=== PATIENT | female | born 1945 | race Caucasian/White ===

== ENCOUNTER 2021-04-05 16:04 | Emergency (ER) | payer MEDICARE, BC ==
--- NOTE | 2021-04-05 16:21 | EDM.PDOC ---
ED HPI GENERAL MEDICAL PROBLEM - General Chief Complaint: Chest Pain Stated Complaint: CHEST PAIN Time Seen by Provider: 04/05/21 16:21 Source of Information: Reports: Patient, RN Notes Reviewed History Limitations: Reports: No Limitations - History of Present Illness INITIAL COMMENTS - FREE TEXT/NARRATIVE: Jessa presents today with complaints of chest pressure off and on since last night after eating at the chicken coop. She states she had pressure to the mid chest that felt like she needed to belch after eating and until she went to sleep. She states she slept well and woke this am without the sensation. She states about 3 hours after she had been awake the chest pressure started. She denies radiation of the sensation, nausea, vomiting, increased belching, abdominal pain or bloating, or change in bowel/bladder. She has taken coumadin since 2019, has pending appointment for an echocardiogram per her product safety test engineer for a large murmur. She reports she has a history of a-fib and thinks she goes in and out of it then back to normal. She denies any dizziness, syncope or other concerns. She has a pending appointment for echocardiogram 04/23/2021. - Related Data Allergies Allergy/AdvReac Type Severity Reaction Status Date / Time No Known Allergies Allergy Verified 04/05/21 16:13 Home Meds: Home Meds Albuterol Sulfate [Proair Hfa] 2 puff INH Q4H PRN 11/22/19 [History] Furosemide [Lasix] 20 mg PO DAILY 11/22/19 [History] Losartan Potassium 25 mg PO DAILY 11/22/19 [History] Metoprolol Succinate [Toprol XL] 25 mg PO DAILY 11/22/19 [History] Multivitamin with Minerals [Multiple Vitamin] 1 tab PO DAILY 11/22/19 [History] Warfarin [Coumadin] 5 mg PO ASDIRECTED 11/22/19 [History] Warfarin [Coumadin] 7.5 mg PO ASDIRECTED 04/05/21 [History] Past Medical History Cardiovascular History: Reports: Heart Murmur Musculoskeletal History: Reports: Fracture Social & Family History - Tobacco Use Tobacco Use Status *Q: Never Tobacco User ED ROS GENERAL - Review of Systems Review Of Systems: See Below Constitutional: Reports: No Symptoms Respiratory: Reports: No Symptoms. Denies: Wheezing, Pleuritic Chest Pain, Cough, Sputum, Hemoptysis Cardiovascular: Reports: Chest Pain (chest pressure to mid-sternum intermittent since last night. ), Dyspnea on Exertion, Edema (that started to bilateral lower legs yesterday with some redness), Palpitations. Denies: Blood Pressure Problem, Claudication, Lightheadedness, Orthopnea, PND, Syncope Endocrine: Reports: No Symptoms GI/Abdominal: Reports: No Symptoms : Reports: No Symptoms Musculoskeletal: Reports: No Symptoms Skin: Reports: No Symptoms Neurological: Reports: No Symptoms Psychiatric: Reports: No Symptoms Hematologic/Lymphatic: Reports: No Symptoms Immunologic: Reports: No Symptoms ED EXAM, GENERAL - Physical Exam Exam: See Below Exam Limited By: No Limitations General Appearance: Alert, WD/WN, No Apparent Distress Eye Exam: Bilateral Eye: Normal Inspection, PERRL Ears: Normal External Exam, Normal Canal, Hearing Grossly Normal, Normal TMs Ear Exam: Bilateral Ear: Auricle Normal, Canal Normal, TM normal Throat/Mouth: Normal Inspection, Normal Lips, Normal Gums, Normal Oropharynx, Normal Voice, No Airway Compromise Head: Atraumatic, Normocephalic Neck: Normal Inspection, Supple, Non-Tender, Full Range of Motion. No: Lymphadenopathy (R), Lymphadenopathy (L) Respiratory/Chest: No Respiratory Distress, Lungs Clear, Normal Breath Sounds, No Accessory Muscle Use, Chest Non-Tender. No: Crackles, Rales, Rhonchi, Wheezing, Stridor, Accessory Muscle Use, Retractions, Splinting Cardiovascular: No Gallop, No JVD, No Rub, Other (noted murmur, grade 3). No: Regular Rate, Rhythm (atrial fibriilation, rate controlled) Peripheral Pulses: 3+: Dorsalis Pedis (L), Dorsalis Pedis (R), 4+: Radial (L), Radial (R) GI/Abdominal: Normal Bowel Sounds, Soft, Non-Tender, No Organomegaly, No Distention, No Mass. No: Guarding, Rigid, Rebound, Tender Back Exam: Normal Inspection, Full Range of Motion. No: CVA Tenderness (R), CVA Tenderness (L) Extremities: Normal Range of Motion, Non-Tender, Normal Capillary Refill, Pedal Edema (2+ from feet to mid-calf) Neurological: Alert, Oriented, CN II-XII Intact, Normal Cognition, Normal Gait, No Motor/Sensory Deficits Psychiatric: Normal Affect, Normal Mood Skin Exam: Warm, Dry, Intact, Normal Color, No Rash Lymphatic: No Adenopathy #1 Interpretation EKG Date: 04/05/21 Time: 16:07 Rhythm: A-Fib Rate (Beats/Min): 93 Comparison: NA - No Prior EKG EKG Interpretation Comments: QRSD 105 QT 350 QTc 436 Course - Vital Signs Last Recorded V/S: Last Vital Signs Temp 36.7 C 04/05/21 16:12 Pulse 71 04/05/21 17:57 Resp 20 04/05/21 16:12 BP 174/100 H 04/05/21 17:57 Pulse Ox 96 04/05/21 16:12 - Orders/Labs/Meds Orders: Active Orders 24 hr Category Date Time Status Chest 2V [CR] Stat Exams 04/05/21 16:41 Taken EKG 12 Lead [EK] Routine Ther 04/05/21 16:40 Ordered Labs: Laboratory Tests 04/05/21 04/05/21 04/05/21 Range/Units 16:54 16:54 16:54 WBC 9.1 (4.5-11.0) K/uL RBC 4.89 (3.30-5.50) M/uL Hgb 12.6 (12.0-15.0) g/dL Hct 39.3 (36.0-48.0) % MCV 80 (80-98) fL MCH 26 L (27-31) pg MCHC 32 (32-36) % Plt Count 342 (150-400) K/uL Neut % (Auto) 77.7 H (36-66) % Lymph % (Auto) 17.7 L (24-44) % [place] % (Auto) 4.5 (2-6) % Eos % (Auto) 0.0 L (2-4) % Baso % (Auto) 0.1 (0-1) % PT 21.4 H (9.5-12.0) sec INR 1.99 H (0.80-1.20) APTT 36.8 H (27.0-36.0) sec Sodium 138 L (140-148) mmol/L Potassium 4.9 (3.6-5.2) mmol/L Chloride 99 L (100-108) mmol/L Carbon Dioxide 27 (21-32) mmol/L Anion Gap 16.9 H (5.0-14.0) mmol/L BUN 17 (7-18) mg/dL Creatinine 0.9 (0.6-1.0) mg/dL Est Cr Clr Drug Dosing 49.00 mL/min Estimated GFR (MDRD) > 60 (>60) Glucose 103 (74-106) mg/dL Calcium 9.2 (8.5-10.1) mg/dL Magnesium (1.8-2.4) mg/dL Total Bilirubin 0.5 (0.2-1.0) mg/dL AST 26 (15-37) U/L ALT 35 (12-78) U/L Alkaline Phosphatase 148 H (46-116) U/L Troponin I < 0.017 (0.000-0.056) ng/mL NT-Pro-B Natriuret Pep 984 H (5-450) pg/mL Total Protein 7.5 (6.4-8.2) g/dL Albumin 3.3 L (3.4-5.0) g/dL Globulin 4.2 H (2.3-3.5) g/dL Albumin/Globulin Ratio 0.8 L (1.2-2.2) TSH, Ultra Sensitive 0.774 (0.358-3.740) uIU/mL 04/05/21 Range/Units 16:54 WBC (4.5-11.0) K/uL RBC (3.30-5.50) M/uL Hgb (12.0-15.0) g/dL Hct (36.0-48.0) % MCV (80-98) fL MCH (27-31) pg MCHC (32-36) % Plt Count (150-400) K/uL Neut % (Auto) (36-66) % Lymph % (Auto) (24-44) % [place] % (Auto) (2-6) % Eos % (Auto) (2-4) % Baso % (Auto) (0-1) % PT (9.5-12.0) sec INR (0.80-1.20) APTT (27.0-36.0) sec Sodium (140-148) mmol/L Potassium (3.6-5.2) mmol/L Chloride (100-108) mmol/L Carbon Dioxide (21-32) mmol/L Anion Gap (5.0-14.0) mmol/L BUN (7-18) mg/dL Creatinine (0.6-1.0) mg/dL Est Cr Clr Drug Dosing mL/min Estimated GFR (MDRD) (>60) Glucose (74-106) mg/dL Calcium (8.5-10.1) mg/dL Magnesium 1.9 (1.8-2.4) mg/dL Total Bilirubin (0.2-1.0) mg/dL AST (15-37) U/L ALT (12-78) U/L Alkaline Phosphatase (46-116) U/L Troponin I (0.000-0.056) ng/mL NT-Pro-B Natriuret Pep (5-450) pg/mL Total Protein (6.4-8.2) g/dL Albumin (3.4-5.0) g/dL Globulin (2.3-3.5) g/dL Albumin/Globulin Ratio (1.2-2.2) TSH, Ultra Sensitive (0.358-3.740) uIU/mL Patient lab work reviewed, she is most likely suffering from CHF at this time. Meds: Medications Discontinued Medications Generic Name Dose Route Start Last Admin Trade Name Freq PRN Reason Stop Dose Admin Al Hydroxide/Mg Hydroxide 15 0 ml 04/05/21 16:39 04/05/21 16:55 ml/ Lidocaine HCl 15 ml PO 04/05/21 16:40 15 ml ONETIME ONE Administration Patient had emesis of GI cocktail shortly after administration. She reports the chest pressure is gone. BP 140s/80s - Radiology Interpretation Free Text/Narrative:: chest x-ray wet read, reviewed, noted mild cardiomegaly with some pulmonary edema. - Re-Assessments/Exams Free Text/Narrative Re-Assessment/Exam: 04/05/21 17:30 Patient lab and x-ray reviewed with Dr. Officer and patient. They are in agreement with plan. She will be discharged to home, increase furosemide to 40mg PO daily for 7 days then then resume furosemide 20mg PO daily as directed and follow up with Dr. Briscoe and cardiology. Return for any worsening, issues or concerns. Referrals placed for Dr. Briscoe and cardiology. Departure - Departure Time of Disposition: 17:47 Disposition: Home, Self-Care 01 Condition: Good Clinical Impression: CHF (congestive heart failure) Instructions: Heart Failure, Self Care, [id number] Referrals: Damien Briscoe MD [Primary Care Provider] - Forms: ED Department Discharge Additional Instructions: You have been evaluated and treated for chest pressure. It is noted that your blood work and chest x-ray point toward congestive heart failure. Increase your furosemide (lasix) to 40mg by mouth daily. Take two of your 20mg pills total when you get home and every morning for 7 days. Then take previous dose of 20mg by mouth daily. Avoid high salt diet. Weigh yourself every day to monitor for weight gain as this could be fluid build-up. If you gain 10lbs or more in 24 hours, call your primary for direction. Elevate your legs to help with edema, you can also wear compression stockings to help with leg edema. Take all your other medications as they are prescribed. Return for any difficulty breathing, ongoing pain, issues or concerns. Follow up with Dr. Briscoe in the next week. Follow up with cardiology and keep echocardiogram test. Sepsis Event Note (ED) - Evaluation Sepsis Screening Result: No Definite Risk - Focused Exam Vital Signs: Vital Signs Temp Pulse Resp BP Pulse Ox 04/05/21 17:57 71 174/100 H 04/05/21 16:12 36.7 C 95 20 172/81 H 96 - My Orders Last 24 Hours: My Active Orders 04/05/21 16:40 EKG 12 Lead [EK] Routine 04/05/21 16:41 Chest 2V [CR] Stat - Assessment/Plan Last 24 Hours: My Active Orders 04/05/21 16:40 EKG 12 Lead [EK] Routine 04/05/21 16:41 Chest 2V [CR] Stat Assessment:: CHF (congestive heart failure) Plan: Patient evaluated and treated for chest pressure. ProBNP >900, trop negative, lower extremity edema, slight cardiomegaly and chest x-ray point toward congestive heart failure. Increase furosemide (lasix) to 40mg by mouth daily. Take two of 20mg pills total when she get home and every morning for 7 days. Then take previous dose of 20mg by mouth daily. Avoid high salt diet. Weigh herself every day to monitor for weight gain as this could be fluid build- up. If she gains 10lbs or more in 24 hours, she needs to call her primary for direction. Elevate legs to help with edema, can also wear compression stockings to help with leg edema. Take all other medications as they are prescribed. Return for any difficulty breathing, ongoing pain, issues or concerns. Follow up with Dr. Briscoe in the next week. Follow up with cardiology and keep echocardiogram test.
[2021-04-05] MEDS ORDERED: Alum Hydrox/Mag Hydrox/Simeth 15 ML, Lidocaine 2% 15 ML PO ONE ×2 (16:39)
--- NOTE | 2021-04-08 09:09 | CR ---
CHEST: 2 view CLINICAL HISTORY:Chest pressure COMPARISON:None FINDINGS: Heart is mildly enlarged. Pulmonary vascularity is normal. There are atherosclerotic changes in the aorta. There is diffuse interstitial prominence which is likely chronic. No infiltrates are seen. There are dense calcifications in the right upper quadrant in the region of the gallbladder. Impression: Mild cardiomegaly Diffuse interstitial prominence likely chronic. No acute cardiopulmonary process Large dense calcifications in the right upper quadrant and the region of the gallbladder. These may represent large gallstones or possibly porcelain gallbladder. CT abdomen with contrast should be considered if there are no prior studies.
== END 2021-04-05 18:03 | disposition home or self-care (01) ==
LOC: JP.ED 16:04
DX: I50.9 Heart failure, unspecified (principal); Z79.01 Long term (current) use of anticoagulants; Z79.899 Other long term (current) drug therapy
CPT/HCPCS: 36415; 71046; 80053; 83735; 83880; 84443; 84484; 85025; 85610; 85730; 93005; 99285; A9270

== ENCOUNTER 2021-05-25 10:06 | Emergency (ER) | payer MEDICARE, BC ==
--- NOTE | 2021-05-25 11:47 | EDM.PDOC ---
ED HPI GENERAL MEDICAL PROBLEM - General Chief Complaint: Gastrointestinal Problem Stated Complaint: PROCEDURE DONE 05/24 NOW HAS BLOODY STOOLS AND CLOT Time Seen by Provider: 05/25/21 11:20 Source of Information: Reports: Patient History Limitations: Reports: No Limitations - History of Present Illness INITIAL COMMENTS - FREE TEXT/NARRATIVE: On coumadin for a. fib. Red rectal bleeding this am. Passing a few small clots and using a pad. No lightheadedness, chest pain or SOB. No nausea or vomiting. No history of GI Bleed. Had Coronary angiogram yesterday with placement of stent. Didn't take Coumadin or Plavix today. - Related Data Allergies Allergy/AdvReac Type Severity Reaction Status Date / Time No Known Allergies Allergy Verified 05/25/21 11:23 Home Meds: Home Meds Furosemide [Lasix] 20 mg PO DAILY 11/22/19 [History] Losartan Potassium 25 mg PO DAILY 11/22/19 [History] Metoprolol Succinate [Toprol XL] 25 mg PO DAILY 11/22/19 [History] Multivitamin with Minerals [Multiple Vitamin] 1 tab PO DAILY 11/22/19 [History] Warfarin [Coumadin] 5 mg PO ASDIRECTED 11/22/19 [History] Warfarin [Coumadin] 7.5 mg PO ASDIRECTED 04/05/21 [History] Past Medical History HEENT History: Reports: Cataract Cardiovascular History: Reports: Afib, CAD, Heart Murmur, Stents Respiratory History: Reports: None Genitourinary History: Reports: None 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: Musculoskeletal History: Reports: Arthritis, Fracture Other Musculoskeletal History: wrist ankle Neurological History: Reports: None Psychiatric History: Reports: None Endocrine/Metabolic History: Reports: Obesity/BMI 30+ Hematologic History: Reports: None Immunologic History: Reports: None Oncologic (Cancer) History: Reports: None Dermatologic History: Reports: None - Infectious Disease History Infectious Disease History: Reports: Chicken Pox - Past Surgical History HEENT Surgical History: Reports: Cataract Surgery Cardiovascular Surgical History: Reports: Cardiac Ablation, Coronary Artery Stent, Percutaneous Transluminal Angioplasty, Other (See Below) Other Cardiovascular Surgeries/Procedures: MILLI - stent 05/24/2021. to have a valve replace Jun 03 GI Surgical History: Reports: Colonoscopy Female Surgical History: Reports: Hysterectomy Social & Family History - Tobacco Use Tobacco Use Status *Q: Former Tobacco User Used Tobacco, but Quit: Yes Month/Year Tobacco Last Used: 25 years ago - Caffeine Use Caffeine Use: Reports: Coffee, Tea ED ROS GENERAL - Review of Systems Review Of Systems: See Below Constitutional: Reports: No Symptoms Respiratory: Reports: No Symptoms Cardiovascular: Reports: No Symptoms Endocrine: Reports: No Symptoms GI/Abdominal: Reports: Hematochezia. Denies: Bloody Stool Musculoskeletal: Reports: No Symptoms Skin: Reports: No Symptoms Neurological: Reports: Dizziness ED EXAM, GI/ABD - Physical Exam Exam: See Below Exam Limited By: No Limitations General Appearance: Alert, WD/WN, No Apparent Distress GI/Abdominal Exam: Other (Rectum and anus appear normal. Some dark blood at anus noted. No obvious source on visual inspection. ) Skin Exam: Warm, Dry, Intact Course - Vital Signs Text/Narrative:: The patient was assessed. Hemodynamically stable. Exam- small amt of red blood at rectum. Lab= normal CBC and INR is 1.1. Pt will hold coumadin and plavix until she talks to her doctor on Thursday. Return to the ED as needed. Last Recorded V/S: Last Vital Signs Temp 36.1 C 05/25/21 11:16 Pulse 66 05/25/21 11:16 Resp 16 05/25/21 11:16 BP 136/56 L 05/25/21 11:16 Pulse Ox 98 05/25/21 11:16 - Orders/Labs/Meds Labs: Laboratory Tests 05/25/21 05/25/21 Range/Units 11:50 11:50 WBC 6.6 (4.5-11.0) K/uL RBC 4.67 (3.30-5.50) M/uL Hgb 12.3 (12.0-15.0) g/dL Hct 38.3 (36.0-48.0) % MCV 82 (80-98) fL MCH 26 L (27-31) pg MCHC 32 (32-36) % Plt Count 304 (150-400) K/uL Neut % (Auto) 72.2 H (36-66) % Lymph % (Auto) 23.3 L (24-44) % [place] % (Auto) 3.8 (2-6) % Eos % (Auto) 0.5 L (2-4) % Baso % (Auto) 0.2 (0-1) % PT 11.0 H (9.2-10.6) sec INR 1.1 Departure - Departure Time of Disposition: 12:55 Disposition: Home, Self-Care 01 Condition: Good Clinical Impression: Rectal bleeding - Discharge Information Instructions: Rectal Bleeding Referrals: Damien Briscoe MD [Primary Care Provider] - Forms: ED Department Discharge Additional Instructions: Call your doctor on Thursday for instructions for taking Coumadin and Plavix. Discuss need for further evaluation with colonoscopy. Return to the ED as needed. Sepsis Event Note (ED) - Focused Exam Vital Signs: Vital Signs Temp Pulse Resp BP Pulse Ox 05/25/21 11:16 36.1 C 66 16 136/56 L 98
== END 2021-05-25 13:18 | disposition home or self-care (01) ==
LOC: JP.ED 10:06
DX: K62.5 Hemorrhage of anus and rectum (principal); I48.91 Unspecified atrial fibrillation; I25.10 Atherosclerotic heart disease of native coronary artery without angina pectoris; E66.9 Obesity, unspecified; Z68.32 Body mass index [BMI] 32.0-32.9, adult; Z87.891 Personal history of nicotine dependence; Z79.899 Other long term (current) drug therapy
CPT/HCPCS: 36415; 85025; 85610; 99283

== ENCOUNTER 2021-06-24 11:40 | Inpatient (IN) | payer MEDICARE, BC ==
--- NOTE | 2021-06-24 12:37 | EDM.PDOC ---
ED HPI GENERAL MEDICAL PROBLEM - General Chief Complaint: General Stated Complaint: WEAKNESS PASSING BLOOD IN STOOL Time Seen by Provider: 06/24/21 12:25 Source of Information: Reports: Patient, Family History Limitations: Reports: No Limitations - History of Present Illness INITIAL COMMENTS - FREE TEXT/NARRATIVE: 76-year-old female who had a valve replacement earlier this month, is on anticoagulation with Coumadin and over the past 3 or 4 days has had some rectal bleeding with clots. She feels like she is getting lightheaded and weaker, however the bleeding seems to have stopped today. 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 She has no fevers or chills, no orthopnea, her appetite is okay. Onset: Sudden Duration: Day(s): (Rectal bleeding for 4 days) Associated Symptoms: Reports: Shortness of Breath (Short of breath with activity), Weakness, Other (Lightheaded, dizziness and fatigue with activity). Denies: Fever/Chills - Related Data Allergies Allergy/AdvReac Type Severity Reaction Status Date / Time No Known Allergies Allergy Verified 06/24/21 12:17 Home Meds: Home Meds Furosemide [Lasix] 20 mg PO DAILY 11/22/19 [History] Losartan Potassium 25 mg PO DAILY 11/22/19 [History] Metoprolol Succinate [Toprol XL] 25 mg PO DAILY 11/22/19 [History] Multivitamin with Minerals [Multiple Vitamin] 1 tab PO DAILY 11/22/19 [History] Warfarin [Coumadin] 5 mg PO ASDIRECTED 11/22/19 [History] Warfarin [Coumadin] 7.5 mg PO ASDIRECTED 04/05/21 [History] Past Medical History HEENT History: Reports: Cataract Cardiovascular History: Reports: Afib, CAD, Heart Murmur, Stents Respiratory History: Reports: None Genitourinary History: Reports: None 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: Musculoskeletal History: Reports: Arthritis, Fracture Other Musculoskeletal History: wrist ankle Neurological History: Reports: None Psychiatric History: Reports: None Endocrine/Metabolic History: Reports: Obesity/BMI 30+ Hematologic History: Reports: None Immunologic History: Reports: None Oncologic (Cancer) History: Reports: None Dermatologic History: Reports: None - Infectious Disease History Infectious Disease History: Reports: Chicken Pox - Past Surgical History HEENT Surgical History: Reports: Cataract Surgery Cardiovascular Surgical History: Reports: Cardiac Ablation, Coronary Artery Stent, Percutaneous Transluminal Angioplasty, Other (See Below) Other Cardiovascular Surgeries/Procedures: MILLI - stent 05/24/2021. to have a valve replace Jun 03 GI Surgical History: Reports: Colonoscopy Female Surgical History: Reports: Hysterectomy Social & Family History - Tobacco Use Tobacco Use Status *Q: Light Tobacco User Years of Tobacco use: 60 Packs/Tins Daily: 0 - Caffeine Use Caffeine Use: Reports: Coffee, Tea - Recreational Drug Use Recreational Drug Use: No ED ROS GENERAL - Review of Systems Review Of Systems: See Below Constitutional: Reports: Malaise. Denies: Fever, Chills HEENT: Reports: No Symptoms Respiratory: Reports: Shortness of Breath GI/Abdominal: Reports: Hematochezia. Denies: Abdominal Pain, Nausea, Vomiting : Reports: No Symptoms Skin: Reports: Pallor Neurological: Reports: Dizziness, Weakness. Denies: Headache, Numbness, Syncope, Tingling ED EXAM, GENERAL - Physical Exam Exam: See Below Exam Limited By: No Limitations General Appearance: Alert, No Apparent Distress Eye Exam: Bilateral Eye: Other (Pale conjunctiva) Head: Atraumatic Respiratory/Chest: No Respiratory Distress, Lungs Clear Cardiovascular: Regular Rate, Rhythm. No: Tachycardia GI/Abdominal: Soft, Non-Tender Extremities: No: Pedal Edema Neurological: Alert, Oriented, No Motor/Sensory Deficits Psychiatric: Normal Affect, Normal Mood Skin Exam: Pallor. No: Cool, Cyanosis, Petechiae Course - Vital Signs Last Recorded V/S: Last Vital Signs Temp 97.1 F 06/24/21 16:17 Pulse 88 06/24/21 16:17 Resp 18 06/24/21 16:17 BP 118/53 L 06/24/21 16:17 Pulse Ox 97 06/24/21 16:17 - Orders/Labs/Meds Orders: Active Orders 24 hr Category Date Time Status PATIENT RETYPE [BBK] Stat Lab 06/24/21 13:06 Results RED BLOOD CELLS LP [BBK] Stat Lab 06/24/21 13:06 Results TYPE AND SCREEN [BBK] Stat Lab 06/24/21 13:06 Results Medication Orders Acetaminophen (Acetaminophen 325 Mg Tab) 650 mg PO Q4H PRN PRN Reason: Pain (Mild 1-3)/fever Bisacodyl (Bisacodyl 5 Mg Tab) 10 mg PO ONETIME ONE Stop: 06/24/21 20:01 Sodium Chloride (Normal Saline) 1,000 mls @ 125 mls/hr IV ASDIRECTED LEIA Losartan Potassium (Losartan 25 Mg Tab) 25 mg PO DAILY LEIA Metoprolol Succinate (Metoprolol Succinate 25 Mg Tab.Er) 25 mg PO DAILY LEIA Ondansetron HCl (Ondansetron 4 Mg/2 Ml Sdv) 4 mg IV Q4H PRN PRN Reason: Nausea/Vomiting Polyethylene Glycol (Polyethylene Glycol 3350 Powder 238 Gm Bot) 238 gm PO ONETIME ONE Stop: 06/24/21 17:01 Sodium Chloride (Sodium Chloride 0.9% 10 Ml Syringe) 10 ml FLUSH ASDIRECTED PRN PRN Reason: Keep Vein Open Labs: Laboratory Tests 06/24/21 06/24/21 06/24/21 Range/Units 12:41 12:41 12:41 WBC 7.9 (4.5-11.0) K/uL RBC 2.50 L (3.30-5.50) M/uL Hgb 6.0 L* D (12.0-15.0) g/dL Hct 20.5 L (36.0-48.0) % MCV 82 (80-98) fL MCH 24 L (27-31) pg MCHC 29 L (32-36) % Plt Count 469 H (150-400) K/uL Neut % (Auto) 80.4 H (36-66) % Lymph % (Auto) 15.8 L (24-44) % [place] % (Auto) 3.2 (2-6) % Eos % (Auto) 0.5 L (2-4) % Baso % (Auto) 0.1 (0-1) % PT 58.0 H (9.2-10.6) sec INR 6.0 H* D Sodium 135 L (140-148) mmol/L Potassium 3.1 L (3.6-5.2) mmol/L Chloride 97 L (100-108) mmol/L Carbon Dioxide 27 (21-32) mmol/L Anion Gap 14.1 H (5.0-14.0) mmol/L BUN 26 H D (7-18) mg/dL Creatinine 0.9 (0.6-1.0) mg/dL Est Cr Clr Drug Dosing 44.49 mL/min Estimated GFR (MDRD) > 60 (>60) Glucose 104 (74-106) mg/dL Calcium 7.9 L (8.5-10.1) mg/dL Blood Type Gel Antibody Screen Crossmatch 06/24/21 Range/Units 13:06 WBC (4.5-11.0) K/uL RBC (3.30-5.50) M/uL Hgb (12.0-15.0) g/dL Hct (36.0-48.0) % MCV (80-98) fL MCH (27-31) pg MCHC (32-36) % Plt Count (150-400) K/uL Neut % (Auto) (36-66) % Lymph % (Auto) (24-44) % [place] % (Auto) (2-6) % Eos % (Auto) (2-4) % Baso % (Auto) (0-1) % PT (9.2-10.6) sec INR Sodium (140-148) mmol/L Potassium (3.6-5.2) mmol/L Chloride (100-108) mmol/L Carbon Dioxide (21-32) mmol/L Anion Gap (5.0-14.0) mmol/L BUN (7-18) mg/dL Creatinine (0.6-1.0) mg/dL Est Cr Clr Drug Dosing mL/min Estimated GFR (MDRD) (>60) Glucose (74-106) mg/dL Calcium (8.5-10.1) mg/dL Blood Type A NEGATIVE Gel Antibody Screen Negative Crossmatch See Detail Meds: Medications Generic Name Dose Route Start Last Admin Trade Name Freq PRN Reason Stop Dose Admin Acetaminophen 650 mg 06/24/21 15:57 Acetaminophen 325 Mg Tab PO Q4H PRN Pain (Mild 1-3)/fever Bisacodyl 10 mg 06/24/21 20:00 Bisacodyl 5 Mg Tab PO 06/24/21 20:01 ONETIME ONE Sodium Chloride 1,000 mls @ 125 mls/hr 06/24/21 15:57 Normal Saline IV ASDIRECTED LEIA Losartan Potassium 25 mg 06/25/21 09:00 Losartan 25 Mg Tab PO DAILY LEIA Metoprolol Succinate 25 mg 06/25/21 09:00 Metoprolol Succinate 25 Mg Tab.Er PO DAILY LEIA Ondansetron HCl 4 mg 06/24/21 15:57 Ondansetron 4 Mg/2 Ml Sdv IV Q4H PRN Nausea/Vomiting Polyethylene Glycol 238 gm 06/24/21 17:00 Polyethylene Glycol 3350 Powder 238 Gm Bot PO 06/24/21 17:01 ONETIME ONE Sodium Chloride 10 ml 06/24/21 15:57 Sodium Chloride 0.9% 10 Ml Syringe FLUSH ASDIRECTED PRN Keep Vein Open Discontinued Medications Generic Name Dose Route Start Last Admin Trade Name Freq PRN Reason Stop Dose Admin Bisacodyl 10 mg 06/24/21 15:57 Bisacodyl 5 Mg Tab PO 06/24/21 15:58 ONETIME ONE Phytonadione 5 mg/ Sodium 50.5 mls @ 100 mls/hr 06/24/21 13:06 06/24/21 13:24 Chloride IV 06/24/21 13:36 100 mls/hr NOW ONE Administration - Re-Assessments/Exams Free Text/Narrative Re-Assessment/Exam: 06/24/21 13:26 CBC and BMP were obtained as well as an INR. Hemoglobin is only 6.0, IV was started and 2 units of packed RBCs crossmatch. INR returned 5.99 so 5 mg of vitamin K given. Because she has an artificial valve, she still needs to have some level of anticoagulation which is going to take a balance of care considering she is going to need a colonoscopy or possibly interventional radiology to embolize a bleeding source. This was discussed with Dr. Chatman our hospitalist, he recommended attempting to get the patient transferred back to [facility] but they are currently on hold and are checking bed status and will call me back. 06/24/21 16:40 All local hospitals were unable to accept this patient in transfer, she is stable enough or our hospitalist service will attempt to monitor her blood transfusions, her anticoagulation and urgent transfer may be needed if she becomes unstable. Departure - Departure Time of Disposition: 15:50 Disposition: Admitted As Inpatient 64 Clinical Impression: Rectal hemorrhage, Supratherapeutic INR, Acute blood loss anemia - Discharge Information Sepsis Event Note (ED) - Evaluation Sepsis Screening Result: No Definite Risk - Focused Exam Vital Signs: Vital Signs Temp Pulse Resp BP Pulse Ox 06/24/21 13:29 95 115/53 L 99 06/24/21 12:54 79 20 109/41 L 99 06/24/21 12:31 91 101/39 L 100 06/24/21 12:16 95.9 F L 88 16 112/34 L 100 06/24/21 11:56 95.9 F L 88 16 112/34 L 100 - My Orders Last 24 Hours: My Active Orders 06/24/21 13:06 PATIENT RETYPE [BBK] Stat RED BLOOD CELLS LP [BBK] Stat TYPE AND SCREEN [BBK] Stat - Assessment/Plan Last 24 Hours: My Active Orders 06/24/21 13:06 PATIENT RETYPE [BBK] Stat RED BLOOD CELLS LP [BBK] Stat TYPE AND SCREEN [BBK] Stat
[2021-06-24] MEDS ORDERED: Phytonadione 5 MG in Sodium Chloride 0.9% 50 ML IV ONE (13:06)
--- NOTE | 2021-06-24 15:35 | PCM.HP.2 ---
H&P History of Present Illness - General Date of Service: 06/24/21 Admit Problem/Dx: Admission Diagnosis/Problem Admission Diagnosis/Problem Bleeding Source of Information: Patient, Family, Provider, RN Notes Reviewed History Limitations: Reports: No Limitations - History of Present Illness Initial Comments - Free Text/Narative: Ms. Bello is a 76-year-old woman who was admitted through the emergency department with weakness and lightheadedness secondary to lower GI bleed. She is status post recent aortic valve replacement surgery with a mechanical aortic valve. Following the valve replacement surgery she was started on oral anticoagulation with warfarin. She had been doing well and recovering from her surgery when she noted onset of bloody stools approximately 4 days ago. Since then she has continued to experience bloody stools and also has developed significant weakness and lightheadedness. Because of the symptoms she presented to the emergency department today. Her INR was found to be supratherapeutic and hemoglobin was very low at 6.0. The plan had been for transfer to a tertiary care center for further management but no beds are available in this region. - Related Data Allergies/Adverse Reactions: Allergies Allergy/AdvReac Type Severity Reaction Status Date / Time No Known Allergies Allergy Verified 06/24/21 12:17 Home Medications: Home Meds Furosemide [Lasix] 40 mg PO DAILY 11/22/19 [History] Losartan Potassium 20 mg PO DAILY 11/22/19 [History] Metoprolol Succinate [Toprol XL] 25 mg PO DAILY 11/22/19 [History] Multivitamin with Minerals [Multiple Vitamin] 1 tab PO DAILY 11/22/19 [History] Warfarin [Coumadin] 5 mg PO ASDIRECTED 11/22/19 [History] Warfarin [Coumadin] 7.5 mg PO ASDIRECTED 04/05/21 [History] Aspirin 81 mg PO DAILY 06/24/21 [History] Clopidogrel [Plavix] 75 mg PO DAILY 06/24/21 [History] Past Medical History HEENT History: Reports: Cataract Cardiovascular History: Reports: Afib, CAD, Heart Murmur, Stents Respiratory History: Reports: None Genitourinary History: Reports: None 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: Musculoskeletal History: Reports: Arthritis, Fracture Other Musculoskeletal History: wrist ankle Neurological History: Reports: None Psychiatric History: Reports: None Endocrine/Metabolic History: Reports: Obesity/BMI 30+ Hematologic History: Reports: None Immunologic History: Reports: None Oncologic (Cancer) History: Reports: None Dermatologic History: Reports: None - Infectious Disease History Infectious Disease History: Reports: Chicken Pox - Past Surgical History HEENT Surgical History: Reports: Cataract Surgery Cardiovascular Surgical History: Reports: Cardiac Ablation, Coronary Artery Stent, Percutaneous Transluminal Angioplasty, Other (See Below) Other Cardiovascular Surgeries/Procedures: MILLI - stent 05/24/2021. to have a valve replace Jun 03 GI Surgical History: Reports: Colonoscopy Female Surgical History: Reports: Hysterectomy Social & Family History - Tobacco Use Tobacco Use Status *Q: Light Tobacco User Years of Tobacco use: 60 Packs/Tins Daily: 0 - Caffeine Use Caffeine Use: Reports: Coffee, Tea - Recreational Drug Use Recreational Drug Use: No H&P Review of Systems - Review of Systems: Review Of Systems: See Below General: Reports: Malaise, Weakness, Fatigue. Denies: Fever, Chills HEENT: Reports: No Symptoms Pulmonary: Reports: Shortness of Breath. Denies: Wheezing, Pleuritic Chest Pain, Cough, Sputum, Hemoptysis Cardiovascular: Reports: Dyspnea on Exertion, Lightheadedness. Denies: Chest Pain, Palpitations, Orthopnea, PND, Edema Gastrointestinal: Reports: Hematochezia. Denies: Abdominal Pain, Difficulty Swallowing, Distension, Hematemesis, Melena, Nausea, Vomiting Genitourinary: Reports: No Symptoms Musculoskeletal: Reports: No Symptoms Skin: Reports: No Symptoms Psychiatric: Reports: No Symptoms Neurological: Reports: No Symptoms Hematologic/Lymphatic: Reports: No Symptoms Immunologic: Reports: No Symptoms Exam - Exam Exam: See Below - Vital Signs Vital Signs: Last Vital Signs Temp 95.9 F L 06/24/21 12:16 Pulse 95 06/24/21 13:29 Resp 20 06/24/21 12:54 BP 115/53 L 06/24/21 13:29 Pulse Ox 99 06/24/21 13:29 Weight: 179 lb 10.828 oz - Exam Quality Assessment: DVT Prophylaxis General: Alert, Oriented, Cooperative, Moderate Distress HEENT: Conjunctiva Clear, Hearing Intact, Normal Nasal Septum, Posterior Pharynx Clear, Pupils Equal. No: Mucosa Moist & [place] Neck: Supple, Trachea Midline, +2 Carotid Pulse wo Bruit Lungs: Clear to Auscultation, Normal Respiratory Effort Cardiovascular: Regular Rate, Regular Rhythm, Normal S1, Normal S2, Other (Aortic prosthetic valve sounds) GI/Abdominal Exam: Soft, Non-Tender, No Organomegaly, No Distention Back Exam: Normal Inspection, Full Range of Motion Extremities: Non-Tender, No Pedal Edema Skin: Warm, Dry, Intact Neurological: Cranial Nerves Intact, Strength Equal Bilateral, Normal Speech, Normal Tone, Sensation Intact. No: Focal Deficit Neuro Extensive - Mental Status: Alert, Oriented x3, Normal Mood/Affect, Normal Cognition, Memory Intact - Patient Data Lab Results Last 24 hrs: Laboratory Results - last 24 hr 06/24/21 06/24/21 06/24/21 Range/Units 12:41 12:41 12:41 WBC 7.9 (4.5-11.0) K/uL RBC 2.50 L (3.30-5.50) M/uL Hgb 6.0 L* D (12.0-15.0) g/dL Hct 20.5 L (36.0-48.0) % MCV 82 (80-98) fL MCH 24 L (27-31) pg MCHC 29 L (32-36) % Plt Count 469 H (150-400) K/uL Neut % (Auto) 80.4 H (36-66) % Lymph % (Auto) 15.8 L (24-44) % [place] % (Auto) 3.2 (2-6) % Eos % (Auto) 0.5 L (2-4) % Baso % (Auto) 0.1 (0-1) % PT 58.0 H (9.2-10.6) sec INR 6.0 H* D Sodium 135 L (140-148) mmol/L Potassium 3.1 L (3.6-5.2) mmol/L Chloride 97 L (100-108) mmol/L Carbon Dioxide 27 (21-32) mmol/L Anion Gap 14.1 H (5.0-14.0) mmol/L BUN 26 H D (7-18) mg/dL Creatinine 0.9 (0.6-1.0) mg/dL Est Cr Clr Drug Dosing 44.49 mL/min Estimated GFR (MDRD) > 60 (>60) Glucose 104 (74-106) mg/dL Calcium 7.9 L (8.5-10.1) mg/dL Blood Type Gel Antibody Screen Crossmatch 06/24/21 Range/Units 13:06 WBC (4.5-11.0) K/uL RBC (3.30-5.50) M/uL Hgb (12.0-15.0) g/dL Hct (36.0-48.0) % MCV (80-98) fL MCH (27-31) pg MCHC (32-36) % Plt Count (150-400) K/uL Neut % (Auto) (36-66) % Lymph % (Auto) (24-44) % [place] % (Auto) (2-6) % Eos % (Auto) (2-4) % Baso % (Auto) (0-1) % PT (9.2-10.6) sec INR Sodium (140-148) mmol/L Potassium (3.6-5.2) mmol/L Chloride (100-108) mmol/L Carbon Dioxide (21-32) mmol/L Anion Gap (5.0-14.0) mmol/L BUN (7-18) mg/dL Creatinine (0.6-1.0) mg/dL Est Cr Clr Drug Dosing mL/min Estimated GFR (MDRD) (>60) Glucose (74-106) mg/dL Calcium (8.5-10.1) mg/dL Blood Type A NEGATIVE Gel Antibody Screen Negative Crossmatch See Detail Result Diagrams: 06/24/21 12:41 06/24/21 12:41 Sepsis Event Note - Evaluation Sepsis Screening Result: No Definite Risk - Focused Exam Vital Signs: Vital Signs Temp Pulse Resp BP Pulse Ox 06/24/21 13:29 95 115/53 L 99 06/24/21 12:54 79 20 109/41 L 99 06/24/21 12:31 91 101/39 L 100 06/24/21 12:16 95.9 F L 88 16 112/34 L 100 06/24/21 11:56 95.9 F L 88 16 112/34 L 100 *Q Meaningful Use (ADM) - VTE *Q VTE Pharmacological Contraindications *Q: Active Hemorrhage - VTE Risk Assess *Q Each Risk Factor Represents 1 Point: Obesity ( BMI > 25 kg/m2) Total Score 1 Point Risk Factors: 1 Each Risk Factor Represents 2 Points: None Total Score 2 Point Risk Factors: 0 Each Risk Factor Represents 3 Points: Age 75 Years or Greater Total Score 3 Point Risk Factors: 3 Each Risk Factor Represents 5 Points: None Total Score 5 Point Risk Factors: 0 Venous Thromboembolism Risk Factor Score *Q: 4 Problem List Initiated/Reviewed/Updated: Yes Orders Last 24hrs: Active Orders 24 hr Category Date Time Status Patient Status Manage Transfer [TRANSFER] Routine ADT 06/24/21 15:21 Active FRESH FROZEN PLASMA [BBK] Stat Lab 06/24/21 13:06 Results PATIENT RETYPE [BBK] Stat Lab 06/24/21 13:06 Results RED BLOOD CELLS LP [BBK] Stat Lab 06/24/21 13:06 Results TYPE AND SCREEN [BBK] Stat Lab 06/24/21 13:06 Results Transfuse Fresh Frozen Plasma [COMM] Stat Oth 06/24/21 15:33 Ordered Resuscitation Status Routine Resus Stat 06/24/21 15:23 Ordered Assessment/Plan Comment:: ASSESSMENT AND PLAN ACUTE LOWER GI BLEED-4-day history of bloody stools and progressive symptoms of lightheadedness, weakness, and shortness of breath. Complicated by current anticoagulation with warfarin for her prosthetic aortic valve. No prior history of GI bleeds. -Management of anticoagulation as below -Transfuse 2 units of red blood cells -Transfuse 2 units of fresh frozen plasma -Type and cross additional 2 units of red blood cells to hold -Clear liquid diet, n.p.o. after midnight -Serial hemoglobin levels -Consult Dr. Quevedo for colonoscopy in a.m. -Transfer to tertiary care center if beds become available ACUTE BLOOD LOSS ANEMIA-secondary to GI bleed -Management as above STATUS POST AORTIC VALVE REPLACEMENT-surgery for valve replacement 3 weeks ago with a mechanical valve. On long-term oral anticoagulation with warfarin, INR today supratherapeutic. -Vitamin K 5 mg IV given in the emergency department -Monitor serial INR levels -Initiate anticoagulation with IV heparin when INR becomes subtherapeutic MAINTENANCE ISSUES -DVT prophylaxis; anticoagulation as above -GI prophylaxis; not indicated -Webber catheter; not indicated -Nutrition; clear liquid diet, n.p.o. after midnight -Nicotine dependence; not required CODE STATUS-FULL CODE ADMISSION STATUS-patient will be admitted to inpatient status, expect at least a 2 night hospital stay for evaluation and management of problems as outlined above. At the time of this admission I do not reasonably expected evaluation and management of this problem will require more than a 96 hour hospital stay. DISPOSITION-anticipate discharge to home after the hospital stay. PRIMARY CARE PROVIDER-Dr. Briscoe - Mortality Measure Prognosis:: Good
[2021-06-24] MEDS ORDERED: Bisacodyl 5 MG Tab PO ONE ×2 (15:57→20:00)
[2021-06-24] MEDS ORDERED: Ondansetron 4 MG/2 ML SDV IV PRN (15:57)
[2021-06-24] MEDS ORDERED: Sodium Chloride 0.9% 10 ML Syringe FLUSH PRN (15:57)
[2021-06-24] MEDS ORDERED: Sodium Chloride 0.9% 1,000 ML IV SCH (15:57)
[2021-06-24] MEDS ORDERED: Polyethylene Glycol 3350 Powder 238 GM Bot PO ONE (17:00)
[2021-06-24] MEDS ORDERED: Heparin Sodium 5,000 Units/ML Vial IVPUSH ONE (21:00)
[2021-06-24] MEDS: Acetaminophen 325 MG Tab PO PRN (21:16)
[2021-06-24] MEDS: Heparin Sodium/D5W 25,000 UNITS/500 ML BAG IV SCH (21:26)
[2021-06-25] MEDS ORDERED: Potassium Chloride 20 MEQ Tab.ER PO ONE (06:35)
[2021-06-25] MEDS: Metoprolol Succinate 25 MG Tab.ER PO SCH (08:01)
[2021-06-25] MEDS ORDERED: Potassium Chloride Riders 40 MEQ in Premix Bag 1 BAG IV ONE (08:14)
[2021-06-25] MEDS: Potassium Chloride 20 MEQ in Premix Bag 1 BAG IV SCH ×2 (08:49→11:31)
[2021-06-25] MEDS ORDERED: fentaNYL 100 MCG/2 ML SDV ONE (11:16)
[2021-06-25] MEDS ORDERED: Propofol 200 MG/20 ML SDV ONE (11:16)
[2021-06-25] MEDS: Losartan 25 MG Tab PO SCH (16:14)
[2021-06-25] MEDS: Heparin Sodium/D5W 25,000 UNITS/500 ML BAG IV SCH (16:28)
--- NOTE | 2021-06-25 17:24 | PCM.PN ---
- General Info Date of Service: 06/25/21 Subjective Update: Ms. Bello has remained stable since admission yesterday with no further evidence of active bleeding. She has been transfused with red blood cells and fresh frozen plasma. Anticoagulation with warfarin has been reversed and she was started on IV heparin infusion. Colonoscopy was performed this afternoon by Dr. Quevedo and unfortunately shows a probable rectal carcinoma. Biopsies were obtained and are pending. - Review of Systems General: Reports: Weakness, Fatigue. Denies: Fever, Chills Pulmonary: Reports: No Symptoms Cardiovascular: Reports: No Symptoms Gastrointestinal: Reports: No Symptoms Genitourinary: Reports: No Symptoms - Patient Data Vitals - Most Recent: Last Vital Signs Temp 97.2 F 06/25/21 17:00 Pulse 81 06/25/21 17:00 Resp 16 06/25/21 17:00 BP 135/68 06/25/21 17:00 Pulse Ox 93 L 06/25/21 17:00 Weight - Most Recent: 184 lb 6.4 oz I&O - Last 24 Hours: Intake & Output 06/25/21 06/25/21 06/25/21 06:59 14:59 22:59 Intake Total 2307 1161 271 Balance 2307 1161 271 Lab Results Last 24 Hours: Laboratory Results - last 24 hr 06/24/21 06/24/21 06/24/21 Range/Units 13:06 19:22 19:22 WBC (4.5-11.0) K/uL RBC (3.30-5.50) M/uL Hgb 6.8 L* (12.0-15.0) g/dL Hct (36.0-48.0) % MCV (80-98) fL MCH (27-31) pg MCHC (32-36) % Plt Count (150-400) K/uL PT 21.2 H (9.2-10.6) sec INR 2.1 D APTT (21.4-31.8) sec Sodium (140-148) mmol/L Potassium (3.6-5.2) mmol/L Chloride (100-108) mmol/L Carbon Dioxide (21-32) mmol/L Anion Gap (5.0-14.0) mmol/L BUN (7-18) mg/dL Creatinine (0.6-1.0) mg/dL Est Cr Clr Drug Dosing mL/min Estimated GFR (MDRD) (>60) Glucose (74-106) mg/dL Calcium (8.5-10.1) mg/dL Blood Type A NEGATIVE Gel Antibody Screen Negative Crossmatch See Detail 06/25/21 06/25/21 06/25/21 Range/Units 00:01 00:01 04:25 WBC 10.1 (4.5-11.0) K/uL RBC 3.12 L (3.30-5.50) M/uL Hgb 7.0 L 8.0 L (12.0-15.0) g/dL Hct 25.5 L (36.0-48.0) % MCV 82 (80-98) fL MCH 26 L (27-31) pg MCHC 31 L (32-36) % Plt Count 380 (150-400) K/uL PT 15.7 H (9.2-10.6) sec INR 1.6 APTT (21.4-31.8) sec Sodium (140-148) mmol/L Potassium (3.6-5.2) mmol/L Chloride (100-108) mmol/L Carbon Dioxide (21-32) mmol/L Anion Gap (5.0-14.0) mmol/L BUN (7-18) mg/dL Creatinine (0.6-1.0) mg/dL Est Cr Clr Drug Dosing mL/min Estimated GFR (MDRD) (>60) Glucose (74-106) mg/dL Calcium (8.5-10.1) mg/dL Blood Type Gel Antibody Screen Crossmatch 06/25/21 06/25/21 06/25/21 Range/Units 04:25 04:25 04:25 WBC (4.5-11.0) K/uL RBC (3.30-5.50) M/uL Hgb (12.0-15.0) g/dL Hct (36.0-48.0) % MCV (80-98) fL MCH (27-31) pg MCHC (32-36) % Plt Count (150-400) K/uL PT 13.4 H (9.2-10.6) sec INR 1.3 APTT 60.7 H (21.4-31.8) sec Sodium 135 L (140-148) mmol/L Potassium 2.9 L* (3.6-5.2) mmol/L Chloride 98 L (100-108) mmol/L Carbon Dioxide 26 (21-32) mmol/L Anion Gap 13.9 (5.0-14.0) mmol/L BUN 20 H (7-18) mg/dL Creatinine 0.9 (0.6-1.0) mg/dL Est Cr Clr Drug Dosing 44.49 mL/min Estimated GFR (MDRD) > 60 (>60) Glucose 101 (74-106) mg/dL Calcium 7.8 L (8.5-10.1) mg/dL Blood Type Gel Antibody Screen Crossmatch 06/25/21 06/25/21 06/25/21 Range/Units 10:00 13:00 16:35 WBC (4.5-11.0) K/uL RBC (3.30-5.50) M/uL Hgb 8.9 L (12.0-15.0) g/dL Hct (36.0-48.0) % MCV (80-98) fL MCH (27-31) pg MCHC (32-36) % Plt Count (150-400) K/uL PT (9.2-10.6) sec INR APTT 69.2 H 83.5 H* (21.4-31.8) sec Sodium (140-148) mmol/L Potassium (3.6-5.2) mmol/L Chloride (100-108) mmol/L Carbon Dioxide (21-32) mmol/L Anion Gap (5.0-14.0) mmol/L BUN (7-18) mg/dL Creatinine (0.6-1.0) mg/dL Est Cr Clr Drug Dosing mL/min Estimated GFR (MDRD) (>60) Glucose (74-106) mg/dL Calcium (8.5-10.1) mg/dL Blood Type Gel Antibody Screen Crossmatch Med Orders - Current: Current Medications Acetaminophen (Acetaminophen 325 Mg Tab) 650 mg PO Q4H PRN PRN Reason: Pain (Mild 1-3)/fever Last Admin: 06/24/21 21:16 Dose: 650 mg Documented by: Docusate Sodium (Docusate Sodium 100 Mg Cap) 200 mg PO BID LEIA Heparin Sodium/Dextrose (Heparin 25,000 Units In D5w 500 Ml) 25,000 units in 500 mls @ 26.036 mls/hr IV TITRATE LEIA; Protocol Last Titration: 06/25/21 17:12 Dose: 14.4 units/kg/hr, 22.861 mls/hr Documented by: Losartan Potassium (Losartan 25 Mg Tab) 25 mg PO DAILY LEIA Last Admin: 06/25/21 16:14 Dose: 25 mg Documented by: Metoprolol Succinate (Metoprolol Succinate 25 Mg Tab.Er) 25 mg PO DAILY [facility] Last Admin: 06/25/21 08:01 Dose: 25 mg Documented by: Ondansetron HCl (Ondansetron 4 Mg/2 Ml Sdv) 4 mg IV Q4H PRN PRN Reason: Nausea/Vomiting Sodium Chloride (Sodium Chloride 0.9% 10 Ml Syringe) 10 ml FLUSH ASDIRECTED PRN PRN Reason: Keep Vein Open Discontinued Medications Bisacodyl (Bisacodyl 5 Mg Tab) 10 mg PO ONETIME ONE Stop: 06/24/21 15:58 Last Admin: 06/24/21 16:47 Dose: 10 mg Documented by: Bisacodyl (Bisacodyl 5 Mg Tab) 10 mg PO ONETIME ONE Stop: 06/24/21 20:01 Last Admin: 06/24/21 21:17 Dose: 10 mg Documented by: Fentanyl (Fentanyl 100 Mcg/2 Ml Sdv) Confirm Administered Dose 100 mcg .ROUTE .STK-MED ONE Stop: 06/25/21 11:17 Heparin Sodium (Porcine) (Heparin Sodium 5,000 Units/Ml Vial) 5,000 units IVPUSH ONETIME ONE Stop: 06/24/21 21:01 Last Admin: 06/24/21 21:03 Dose: Not Given Documented by: Phytonadione 5 mg/ Sodium (Chloride) 50.5 mls @ 100 mls/hr IV NOW ONE Stop: 06/24/21 13:36 Last Admin: 06/24/21 13:24 Dose: 100 mls/hr Documented by: Sodium Chloride (Normal Saline) 1,000 mls @ 125 mls/hr IV ASDIRECTED LEIA Last Admin: 06/25/21 14:14 Dose: 125 mls/hr Documented by: Potassium Chloride 20 meq/ (Premix) 100 mls @ 50 mls/hr IV Q2H LEIA Stop: 06/25/21 12:59 Last Admin: 06/25/21 11:31 Dose: 50 mls/hr Documented by: Polyethylene Glycol (Polyethylene Glycol 3350 Powder 238 Gm Bot) 238 gm PO O NETIME ONE Stop: 06/24/21 17:01 Last Admin: 06/24/21 17:38 Dose: 238 gm Documented by: Potassium Chloride (Potassium Chloride 20 Meq Tab.Er) 40 meq PO ONETIME ONE Stop: 06/25/21 06:36 Last Admin: 06/25/21 07:12 Dose: 40 meq Documented by: Propofol (Propofol 200 Mg/20 Ml Sdv) Confirm Administered Dose 200 mg .ROUTE .STK-MED ONE Stop: 06/25/21 11:17 - Exam Quality Assessment: DVT Prophylaxis General: Alert, Oriented, Cooperative, Mild Distress Lungs: Clear to Auscultation, Normal Respiratory Effort Cardiovascular: Regular Rate, Regular Rhythm, No Murmurs GI/Abdominal Exam: Soft, Non-Tender, No Organomegaly, No Distention Extremities: Non-Tender, No Pedal Edema - Patient Data Lab Results Last 24 hrs: Laboratory Results - last 24 hr 06/24/21 06/24/21 06/24/21 Range/Units 13:06 19:22 19:22 WBC (4.5-11.0) K/uL RBC (3.30-5.50) M/uL Hgb 6.8 L* (12.0-15.0) g/dL Hct (36.0-48.0) % MCV (80-98) fL MCH (27-31) pg MCHC (32-36) % Plt Count (150-400) K/uL PT 21.2 H (9.2-10.6) sec INR 2.1 D APTT (21.4-31.8) sec Sodium (140-148) mmol/L Potassium (3.6-5.2) mmol/L Chloride (100-108) mmol/L Carbon Dioxide (21-32) mmol/L Anion Gap (5.0-14.0) mmol/L BUN (7-18) mg/dL Creatinine (0.6-1.0) mg/dL Est Cr Clr Drug Dosing mL/min Estimated GFR (MDRD) (>60) Glucose (74-106) mg/dL Calcium (8.5-10.1) mg/dL Blood Type A NEGATIVE Gel Antibody Screen Negative Crossmatch See Detail 06/25/21 06/25/21 06/25/21 Range/Units 00:01 00:01 04:25 WBC 10.1 (4.5-11.0) K/uL RBC 3.12 L (3.30-5.50) M/uL Hgb 7.0 L 8.0 L (12.0-15.0) g/dL Hct 25.5 L (36.0-48.0) % MCV 82 (80-98) fL MCH 26 L (27-31) pg MCHC 31 L (32-36) % Plt Count 380 (150-400) K/uL PT 15.7 H (9.2-10.6) sec INR 1.6 APTT (21.4-31.8) sec Sodium (140-148) mmol/L Potassium (3.6-5.2) mmol/L Chloride (100-108) mmol/L Carbon Dioxide (21-32) mmol/L Anion Gap (5.0-14.0) mmol/L BUN (7-18) mg/dL Creatinine (0.6-1.0) mg/dL Est Cr Clr Drug Dosing mL/min Estimated GFR (MDRD) (>60) Glucose (74-106) mg/dL Calcium (8.5-10.1) mg/dL Blood Type Gel Antibody Screen Crossmatch 06/25/21 06/25/21 06/25/21 Range/Units 04:25 04:25 04:25 WBC (4.5-11.0) K/uL RBC (3.30-5.50) M/uL Hgb (12.0-15.0) g/dL Hct (36.0-48.0) % MCV (80-98) fL MCH (27-31) pg MCHC (32-36) % Plt Count (150-400) K/uL PT 13.4 H (9.2-10.6) sec INR 1.3 APTT 60.7 H (21.4-31.8) sec Sodium 135 L (140-148) mmol/L Potassium 2.9 L* (3.6-5.2) mmol/L Chloride 98 L (100-108) mmol/L Carbon Dioxide 26 (21-32) mmol/L Anion Gap 13.9 (5.0-14.0) mmol/L BUN 20 H (7-18) mg/dL Creatinine 0.9 (0.6-1.0) mg/dL Est Cr Clr Drug Dosing 44.49 mL/min Estimated GFR (MDRD) > 60 (>60) Glucose 101 (74-106) mg/dL Calcium 7.8 L (8.5-10.1) mg/dL Blood Type Gel Antibody Screen Crossmatch 06/25/21 06/25/21 06/25/21 Range/Units 10:00 13:00 16:35 WBC (4.5-11.0) K/uL RBC (3.30-5.50) M/uL Hgb 8.9 L (12.0-15.0) g/dL Hct (36.0-48.0) % MCV (80-98) fL MCH (27-31) pg MCHC (32-36) % Plt Count (150-400) K/uL PT (9.2-10.6) sec INR APTT 69.2 H 83.5 H* (21.4-31.8) sec Sodium (140-148) mmol/L Potassium (3.6-5.2) mmol/L Chloride (100-108) mmol/L Carbon Dioxide (21-32) mmol/L Anion Gap (5.0-14.0) mmol/L BUN (7-18) mg/dL Creatinine (0.6-1.0) mg/dL Est Cr Clr Drug Dosing mL/min Estimated GFR (MDRD) (>60) Glucose (74-106) mg/dL Calcium (8.5-10.1) mg/dL Blood Type Gel Antibody Screen Crossmatch Result Diagrams: 06/25/21 13:00 06/25/21 04:25 Sepsis Event Note - Evaluation Sepsis Screening Result: No Definite Risk - Focused Exam Vital Signs: Vital Signs Temp Temp Pulse Pulse Resp BP BP 06/25/21 17:00 97.2 F 81 16 135/68 06/25/21 16:27 97.1 F 74 16 126/56 L 06/25/21 16:14 97.3 F 76 18 144/67 H 144/67 H 06/25/21 16:00 97.7 F 72 14 121/65 06/25/21 15:55 79 14 116/56 L 06/25/21 15:50 69 14 102/51 L 06/25/21 15:45 89 14 103/60 06/25/21 15:40 98.1 F 83 14 104/58 L 06/25/21 15:00 97.2 F 89 18 138/55 L 06/25/21 14:00 97.4 F 77 14 131/50 L 06/25/21 13:00 97.5 F 72 16 123/48 L 06/25/21 12:00 97 F 96 18 148/64 H 06/25/21 11:00 97.6 F 86 16 125/57 L 06/25/21 09:58 97.6 F 77 16 127/51 L 06/25/21 09:00 97.3 F 82 16 132/58 L 06/25/21 08:01 86 121/74 06/25/21 08:00 97.1 F 86 14 121/74 06/25/21 07:00 97 F 85 14 134/52 L 06/25/21 06:07 97.3 F 80 18 105/44 L Pulse Ox 06/25/21 17:00 93 L 06/25/21 16:27 93 L 06/25/21 16:14 95 06/25/21 16:00 95 06/25/21 15:55 95 06/25/21 15:50 99 06/25/21 15:45 99 06/25/21 15:40 100 06/25/21 15:00 90 L 06/25/21 14:00 97 06/25/21 13:00 95 06/25/21 12:00 95 06/25/21 11:00 97 06/25/21 09:58 95 06/25/21 09:00 96 06/25/21 08:01 06/25/21 08:00 97 06/25/21 07:00 97 06/25/21 06:07 98 - Problem List Review Problem List Initiated/Reviewed/Updated: Yes - My Orders Last 24 Hours: My Active Orders 06/24/21 21:00 Heparin Sodium/D5W [Heparin 25,000 Units in D5W 500 ML] 25,000 units in 500 ml IV TITRATE 06/25/21 01:14 Transfuse Red Blood Cells [COMM] Stat 06/25/21 09:00 Losartan [Cozaar] 25 mg PO DAILY Metoprolol Succinate [Toprol XL] 25 mg PO DAILY 06/25/21 16:35 POTASSIUM,K [CHEM] Routine 06/25/21 Dinner Full Liquid Diet [DIET] 06/25/21 17:10 Convert IV to Saline Lock [OM.PC] Routine 06/25/21 21:00 HGB [HEMOGLOBIN] [HEME] Stat Docusate Sodium [Colace] 200 mg PO BID 06/25/21 22:00 aPTT [PTT,PARTIAL THROMBOPLSTIN TIME] [COAG] Routine 06/26/21 04:00 aPTT [PTT,PARTIAL THROMBOPLSTIN TIME] [COAG] Routine 06/26/21 05:00 BASIC METABOLIC PANEL,BMP [CHEM] Timed CBC WITH AUTO DIFF [HEME] Timed INR,PT,PROTHROMBIN TIME [COAG] Timed - Plan Plan:: ASSESSMENT AND PLAN ACUTE LOWER GI BLEED-stable since admission with no further evidence of active bleeding. Colonoscopy performed this afternoon by Dr. Quevedo shows evidence of a probable rectal carcinoma. -Management of anticoagulation as below -Type and cross additional 2 units of red blood cells to hold -Full liquid diet -Serial hemoglobin levels -Surgical follow-up per Dr. 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 On long-term oral anticoagulation with warfarin, INR today supratherapeutic. -Continue IV heparin per protocol -Monitor serial INR levels -If no further bleeding will need to resume therapy with warfarin and convert from IV heparin to Lovenox in the interim MAINTENANCE ISSUES -DVT prophylaxis; anticoagulation as above -GI prophylaxis; not indicated -Webber catheter; not indicated -Nutrition; full liquid diet -Nicotine dependence; not required CODE STATUS-FULL CODE ADMISSION STATUS-patient will be admitted to inpatient status, expect at least a 2 night hospital stay for evaluation and management of problems as outlined above. At the time of this admission I do not reasonably expected evaluation and management of this problem will require more than a 96 hour hospital stay. DISPOSITION-anticipate discharge to home after the hospital stay. PRIMARY CARE PROVIDER-Dr. Briscoe
[2021-06-25] MEDS: Docusate Sodium 100 MG Cap PO SCH (21:04)
[2021-06-25] MEDS: Acetaminophen 325 MG Tab PO PRN (21:07)
[2021-06-26] MEDS: Acetaminophen 325 MG Tab PO PRN ×3 (02:31→13:09)
[2021-06-26] MEDS: Docusate Sodium 100 MG Cap PO SCH ×2 (08:22→21:19)
--- NOTE | 2021-06-26 08:23 | OR ---
DATE OF PROCEDURE: 06/25/2021 SURGEON: Moses Quevedo MD PROCEDURE: Colonoscopy. FINDINGS: Mass at 4 cm concerning for rectal adenocarcinoma. COMPLICATION: None. STOCK CHECKERER: None. ANESTHESIA: MAC. PREOPERATIVE DIAGNOSIS: Gastrointestinal bleed. POSTOPERATIVE DIAGNOSIS: Gastrointestinal bleed. RISKS: Risks, benefits, alternatives, and limitations including, but not limited to infection, bleeding, perforation, false positives, and false negatives were explained to the patient, who wished to proceed. PROCEDURE IN DETAIL: The patient was placed in the left lateral decubitus position. Digital rectal exam was performed without abnormality. Scope was introduced and advanced atraumatically to the ileocecal valve. Scope was brought back to the ascending, transverse, descending colon, and retroflexed. No old or new blood. At 4 cm, the patient had a mass concerning for rectal adenocarcinoma. This was tattooed with Melani ink in the distal aspect and subsequently biopsied multiple times. No other abnormalities noted. The prep was poor, approximately 80% of the luminal surface could be seen. Greater than 8 minutes was spent removing the scope. The patient tolerated the procedure well. Moses Quevedo MD /[id number]
[2021-06-26] MEDS: Losartan 25 MG Tab PO SCH (08:24)
[2021-06-26] MEDS: Metoprolol Succinate 25 MG Tab.ER PO SCH (08:25)
[2021-06-26] MEDS ORDERED: Potassium Chloride 20 MEQ Tab.ER PO ONE ×2 (09:00→17:30)
[2021-06-26] MEDS ORDERED: Heparin Sodium 5,000 Units/ML Vial IVPUSH ONE (14:45)
[2021-06-26] MEDS: Heparin Sodium/D5W 25,000 UNITS/500 ML BAG IV SCH (15:49)
--- NOTE | 2021-06-26 16:56 | PCM.PN ---
- General Info Date of Service: 06/26/21 Subjective Update: Ms. Bello has remained fairly stable since yesterday. Hemoglobin has dropped today to 7.6. She has had only minimal blood per rectum. She is tolerating her diet thus far and overall energy level has been fairly good. Functional Status: Reports: Tolerating Diet, Ambulating, Urinating - Review of Systems General: Reports: Weakness, Fatigue. Denies: Fever, Chills Pulmonary: Reports: No Symptoms Cardiovascular: Reports: No Symptoms Gastrointestinal: Reports: Hematochezia. Denies: Abdominal Pain, Constipation, Difficulty Swallowing, Melena, Nausea, Vomiting Genitourinary: Reports: No Symptoms - Patient Data Vitals - Most Recent: Last Vital Signs Temp 97.1 F 06/26/21 15:00 Pulse 85 06/26/21 16:00 Resp 16 06/26/21 16:00 BP 131/62 06/26/21 16:00 Pulse Ox 95 06/26/21 15:00 Weight - Most Recent: 185 lb 12.8 oz I&O - Last 24 Hours: Intake & Output 06/26/21 06/26/21 06/26/21 06:59 14:59 22:59 Intake Total 842 [id number] Balance 025 299 [id number] Lab Results Last 24 Hours: Laboratory Results - last 24 hr 06/25/21 06/25/21 06/25/21 Range/Units 16:35 16:35 22:04 WBC (4.5-11.0) K/uL RBC (3.30-5.50) M/uL Hgb (12.0-15.0) g/dL Hct (36.0-48.0) % MCV (80-98) fL MCH (27-31) pg MCHC (32-36) % Plt Count (150-400) K/uL Neut % (Auto) (36-66) % Lymph % (Auto) (24-44) % [place] % (Auto) (2-6) % Eos % (Auto) (2-4) % Baso % (Auto) (0-1) % PT (9.2-10.6) sec INR APTT 83.5 H* 75.0 H* (21.4-31.8) sec Sodium (140-148) mmol/L Potassium 3.7 (3.6-5.2) mmol/L Chloride (100-108) mmol/L Carbon Dioxide (21-32) mmol/L Anion Gap (5.0-14.0) mmol/L BUN (7-18) mg/dL Creatinine (0.6-1.0) mg/dL Est Cr Clr Drug Dosing mL/min Estimated GFR (MDRD) (>60) Glucose (74-106) mg/dL Calcium (8.5-10.1) mg/dL 06/25/21 06/26/21 06/26/21 Range/Units 22:04 04:18 04:18 WBC 7.2 (4.5-11.0) K/uL RBC 2.92 L (3.30-5.50) M/uL Hgb 7.8 L 7.6 L (12.0-15.0) g/dL Hct 24.1 L (36.0-48.0) % MCV 83 (80-98) fL MCH 26 L (27-31) pg MCHC 32 (32-36) % Plt Count 359 (150-400) K/uL Neut % (Auto) 64.8 (36-66) % Lymph % (Auto) 26.9 (24-44) % [place] % (Auto) 6.4 H (2-6) % Eos % (Auto) 1.8 L (2-4) % Baso % (Auto) 0.1 (0-1) % PT (9.2-10.6) sec INR APTT 62.4 H (21.4-31.8) sec Sodium (140-148) mmol/L Potassium (3.6-5.2) mmol/L Chloride (100-108) mmol/L Carbon Dioxide (21-32) mmol/L Anion Gap (5.0-14.0) mmol/L BUN (7-18) mg/dL Creatinine (0.6-1.0) mg/dL Est Cr Clr Drug Dosing mL/min Estimated GFR (MDRD) (>60) Glucose (74-106) mg/dL Calcium (8.5-10.1) mg/dL 06/26/21 06/26/21 06/26/21 Range/Units 04:18 04:18 10:09 WBC (4.5-11.0) K/uL RBC (3.30-5.50) M/uL Hgb (12.0-15.0) g/dL Hct (36.0-48.0) % MCV (80-98) fL MCH (27-31) pg MCHC (32-36) % Plt Count (150-400) K/uL Neut % (Auto) (36-66) % Lymph % (Auto) (24-44) % [place] % (Auto) (2-6) % Eos % (Auto) (2-4) % Baso % (Auto) (0-1) % PT 11.7 H (9.2-10.6) sec INR 1.2 APTT 49.2 H (21.4-31.8) sec Sodium 137 L (140-148) mmol/L Potassium 3.5 L (3.6-5.2) mmol/L Chloride 103 (100-108) mmol/L Carbon Dioxide 25 (21-32) mmol/L Anion Gap 12.5 (5.0-14.0) mmol/L BUN 13 (7-18) mg/dL Creatinine 0.8 (0.6-1.0) mg/dL Est Cr Clr Drug Dosing 50.05 mL/min Estimated GFR (MDRD) > 60 (>60) Glucose 93 (74-106) mg/dL Calcium 7.8 L (8.5-10.1) mg/dL 06/26/21 06/26/21 Range/Units 13:00 13:14 WBC (4.5-11.0) K/uL RBC (3.30-5.50) M/uL Hgb 7.6 L (12.0-15.0) g/dL Hct (36.0-48.0) % MCV (80-98) fL MCH (27-31) pg MCHC (32-36) % Plt Count (150-400) K/uL Neut % (Auto) (36-66) % Lymph % (Auto) (24-44) % [place] % (Auto) (2-6) % Eos % (Auto) (2-4) % Baso % (Auto) (0-1) % PT (9.2-10.6) sec INR APTT 48.7 H (21.4-31.8) sec Sodium (140-148) mmol/L Potassium (3.6-5.2) mmol/L Chloride (100-108) mmol/L Carbon Dioxide (21-32) mmol/L Anion Gap (5.0-14.0) mmol/L BUN (7-18) mg/dL Creatinine (0.6-1.0) mg/dL Est Cr Clr Drug Dosing mL/min Estimated GFR (MDRD) (>60) Glucose (74-106) mg/dL Calcium (8.5-10.1) mg/dL Med Orders - Current: Current Medications Acetaminophen (Acetaminophen 325 Mg Tab) 650 mg PO Q4H PRN PRN Reason: Pain (Mild 1-3)/fever Last Admin: 06/26/21 13:09 Dose: 650 mg Documented by: Docusate Sodium (Docusate Sodium 100 Mg Cap) 200 mg PO BID [facility] Last Admin: 06/26/21 08:22 Dose: Not Given Documented by: Heparin Sodium/Dextrose (Heparin 25,000 Units In D5w 500 Ml) 25,000 units in 500 mls @ 26.036 mls/hr IV TITRATE [facility]; Protocol Last Admin: 06/26/21 15:49 Dose: 16.4 units/kg/hr, 26.036 mls/hr Documented by: Losartan Potassium (Losartan 25 Mg Tab) 25 mg PO DAILY [facility] Last Admin: 06/26/21 08:24 Dose: 25 mg Documented by: Metoprolol Succinate (Metoprolol Succinate 25 Mg Tab.Er) 25 mg PO DAILY [facility] Last Admin: 06/26/21 08:25 Dose: 25 mg Documented by: Ondansetron HCl (Ondansetron 4 Mg/2 Ml Sdv) 4 mg IV Q4H PRN PRN Reason: Nausea/Vomiting Oxycodone HCl (Oxycodone 5 Mg Tab) 5 mg PO Q4H PRN PRN Reason: Pain (moderate 4-6) Potassium Chloride (Potassium Chloride 20 Meq Tab.Er) 40 meq PO ONETIME ONE Stop: 06/26/21 16:48 Sodium Chloride (Sodium Chloride 0.9% 10 Ml Syringe) 10 ml FLUSH ASDIRECTED PRN PRN Reason: Keep Vein Open Discontinued Medications Bisacodyl (Bisacodyl 5 Mg Tab) 10 mg PO ONETIME ONE Stop: 06/24/21 15:58 Last Admin: 06/24/21 16:47 Dose: 10 mg Documented by: Bisacodyl (Bisacodyl 5 Mg Tab) 10 mg PO ONETIME ONE Stop: 06/24/21 20:01 Last Admin: 06/24/21 21:17 Dose: 10 mg Documented by: Fentanyl (Fentanyl 100 Mcg/2 Ml Sdv) Confirm Administered Dose 100 mcg .ROUTE .STK-MED ONE Stop: 06/25/21 11:17 Heparin Sodium (Porcine) (Heparin Sodium 5,000 Units/Ml Vial) 5,000 units IVPUSH ONETIME ONE Stop: 06/24/21 21:01 Last Admin: 06/24/21 21:03 Dose: Not Given Documented by: Heparin Sodium (Porcine) (Heparin Sodium 5,000 Units/Ml Vial) 1,500 units IVPUSH .BOLUS ONE Stop: 06/26/21 14:46 Last Admin: 06/26/21 14:30 Dose: 1,500 units Documented by: Phytonadione 5 mg/ Sodium (Chloride) 50.5 mls @ 100 mls/hr IV NOW ONE Stop: 06/24/21 13:36 Last Admin: 06/24/21 13:24 Dose: 100 mls/hr Documented by: Sodium Chloride (Normal Saline) 1,000 mls @ 125 mls/hr IV ASDIRECTED [facility] Last Admin: 06/25/21 14:14 Dose: 125 mls/hr Documented by: Potassium Chloride 20 meq/ (Premix) 100 mls @ 50 mls/hr IV Q2H [facility] Stop: 06/25/21 12:59 Last Admin: 06/25/21 11:31 Dose: 50 mls/hr Documented by: Polyethylene Glycol (Polyethylene Glycol 3350 Powder 238 Gm Bot) 238 gm PO ONETIME ONE Stop: 06/24/21 17:01 Last Admin: 06/24/21 17:38 Dose: 238 gm Documented by: Potassium Chloride (Potassium Chloride 20 Meq Tab.Er) 40 meq PO ONETIME ONE Stop: 06/25/21 06:36 Last Admin: 06/25/21 07:12 Dose: 40 meq Documented by: Potassium Chloride (Potassium Chloride 20 Meq Tab.Er) 40 meq PO ONETIME ONE Stop: 06/26/21 09:01 Last Admin: 06/26/21 09:05 Dose: 40 meq Documented by: Propofol (Propofol 200 Mg/20 Ml Sdv) Confirm Administered Dose 200 mg .ROUTE .STK-MED ONE Stop: 06/25/21 11:17 - Exam Quality Assessment: DVT Prophylaxis General: Alert, Oriented, Cooperative, Mild Distress Lungs: Clear to Auscultation, Normal Respiratory Effort Cardiovascular: Regular Rate, Regular Rhythm, No Murmurs GI/Abdominal Exam: Soft, Non-Tender, No Organomegaly, No Distention Extremities: Non-Tender, No Pedal Edema - Patient Data Lab Results Last 24 hrs: Laboratory Results - last 24 hr 06/25/21 06/25/21 06/25/21 Range/Units 16:35 16:35 22:04 WBC (4.5-11.0) K/uL RBC (3.30-5.50) M/uL Hgb (12.0-15.0) g/dL Hct (36.0-48.0) % MCV (80-98) fL MCH (27-31) pg MCHC (32-36) % Plt Count (150-400) K/uL Neut % (Auto) (36-66) % Lymph % (Auto) (24-44) % [place] % (Auto) (2-6) % Eos % (Auto) (2-4) % Baso % (Auto) (0-1) % PT (9.2-10.6) sec INR APTT 83.5 H* 75.0 H* (21.4-31.8) sec Sodium (140-148) mmol/L Potassium 3.7 (3.6-5.2) mmol/L Chloride (100-108) mmol/L Carbon Dioxide (21-32) mmol/L Anion Gap (5.0-14.0) mmol/L BUN (7-18) mg/dL Creatinine (0.6-1.0) mg/dL Est Cr Clr Drug Dosing mL/min Estimated GFR (MDRD) (>60) Glucose (74-106) mg/dL Calcium (8.5-10.1) mg/dL 06/25/21 06/26/21 06/26/21 Range/Units 22:04 04:18 04:18 WBC 7.2 (4.5-11.0) K/uL RBC 2.92 L (3.30-5.50) M/uL Hgb 7.8 L 7.6 L (12.0-15.0) g/dL Hct 24.1 L (36.0-48.0) % MCV 83 (80-98) fL MCH 26 L (27-31) pg MCHC 32 (32-36) % Plt Count 359 (150-400) K/uL Neut % (Auto) 64.8 (36-66) % Lymph % (Auto) 26.9 (24-44) % [place] % (Auto) 6.4 H (2-6) % Eos % (Auto) 1.8 L (2-4) % Baso % (Auto) 0.1 (0-1) % PT (9.2-10.6) sec INR APTT 62.4 H (21.4-31.8) sec Sodium (140-148) mmol/L Potassium (3.6-5.2) mmol/L Chloride (100-108) mmol/L Carbon Dioxide (21-32) mmol/L Anion Gap (5.0-14.0) mmol/L BUN (7-18) mg/dL Creatinine (0.6-1.0) mg/dL Est Cr Clr Drug Dosing mL/min Estimated GFR (MDRD) (>60) Glucose (74-106) mg/dL Calcium (8.5-10.1) mg/dL 06/26/21 06/26/21 06/26/21 Range/Units 04:18 04:18 10:09 WBC (4.5-11.0) K/uL RBC (3.30-5.50) M/uL Hgb (12.0-15.0) g/dL Hct (36.0-48.0) % MCV (80-98) fL MCH (27-31) pg MCHC (32-36) % Plt Count (150-400) K/uL Neut % (Auto) (36-66) % Lymph % (Auto) (24-44) % [place] % (Auto) (2-6) % Eos % (Auto) (2-4) % Baso % (Auto) (0-1) % PT 11.7 H (9.2-10.6) sec INR 1.2 APTT 49.2 H (21.4-31.8) sec Sodium 137 L (140-148) mmol/L Potassium 3.5 L (3.6-5.2) mmol/L Chloride 103 (100-108) mmol/L Carbon Dioxide 25 (21-32) mmol/L Anion Gap 12.5 (5.0-14.0) mmol/L BUN 13 (7-18) mg/dL Creatinine 0.8 (0.6-1.0) mg/dL Est Cr Clr Drug Dosing 50.05 mL/min Estimated GFR (MDRD) > 60 (>60) Glucose 93 (74-106) mg/dL Calcium 7.8 L (8.5-10.1) mg/dL 06/26/21 06/26/21 Range/Units 13:00 13:14 WBC (4.5-11.0) K/uL RBC (3.30-5.50) M/uL Hgb 7.6 L (12.0-15.0) g/dL Hct (36.0-48.0) % MCV (80-98) fL MCH (27-31) pg MCHC (32-36) % Plt Count (150-400) K/uL Neut % (Auto) (36-66) % Lymph % (Auto) (24-44) % [place] % (Auto) (2-6) % Eos % (Auto) (2-4) % Baso % (Auto) (0-1) % PT (9.2-10.6) sec INR APTT 48.7 H (21.4-31.8) sec Sodium (140-148) mmol/L Potassium (3.6-5.2) mmol/L Chloride (100-108) mmol/L Carbon Dioxide (21-32) mmol/L Anion Gap (5.0-14.0) mmol/L BUN (7-18) mg/dL Creatinine (0.6-1.0) mg/dL Est Cr Clr Drug Dosing mL/min Estimated GFR (MDRD) (>60) Glucose (74-106) mg/dL Calcium (8.5-10.1) mg/dL Result Diagrams: 06/26/21 13:00 06/26/21 04:18 Sepsis Event Note - Evaluation Sepsis Screening Result: No Definite Risk - Focused Exam Vital Signs: Vital Signs Temp Pulse Pulse Resp BP BP Pulse Ox 06/26/21 16:00 85 16 131/62 06/26/21 15:00 97.1 F 86 16 99/51 L 95 06/26/21 14:00 86 16 114/60 06/26/21 13:00 97.5 F 91 20 125/52 L 96 06/26/21 12:00 97.2 F 93 20 124/46 L 06/26/21 11:00 97.9 F 77 19 128/51 L 94 L 06/26/21 10:00 97.1 F 91 20 130/57 L 06/26/21 09:00 97.1 F 90 20 139/56 L 97 06/26/21 08:25 82 142/63 H 06/26/21 08:24 142/63 H 06/26/21 08:00 86 20 142/63 H 06/26/21 07:00 96.1 F L 81 20 129/50 L 93 L 06/26/21 06:00 96.8 F L 81 20 123/53 L 06/26/21 05:00 72 18 102/54 L - Problem List Review Problem List Initiated/Reviewed/Updated: Yes - My Orders Last 24 Hours: My Active Orders 06/25/21 17:10 Convert IV to Saline Lock [OM.PC] Routine 06/25/21 21:00 Docusate Sodium [Colace] 200 mg PO BID 06/26/21 16:33 oxyCODONE 5 mg PO Q4H PRN 06/26/21 16:47 Potassium Chloride [Klor-Con M20] 40 meq PO ONETIME ONE 06/26/21 Dinner GI Soft Low Fiber [Soft Diet] [DIET] aPTT [PTT,PARTIAL THROMBOPLSTIN TIME] [COAG] Routine 06/26/21 21:00 HGB [HEMOGLOBIN] [HEME] Stat PTT,PARTIAL THROMBOPLSTIN TIME [COAG] Stat 06/27/21 05:00 BASIC METABOLIC PANEL,BMP [CHEM] Timed CBC WITH AUTO DIFF [HEME] Timed - Plan Plan:: ASSESSMENT AND PLAN ACUTE LOWER GI BLEED-stable since admission, she does continue to pass small amounts of red blood per rectum -Management of anticoagulation as below -Soft low residue diet -Serial hemoglobin levels -Surgical follow-up per Dr. 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 -Continue IV heparin per protocol -Continue to hold warfarin MAINTENANCE ISSUES -DVT prophylaxis; anticoagulation as above -GI prophylaxis; not indicated -Webber catheter; not indicated -Nutrition; full liquid diet -Nicotine dependence; not required CODE STATUS-FULL CODE ADMISSION STATUS-patient will be admitted to inpatient status, expect at least a 2 night hospital stay for evaluation and management of problems as outlined above. At the time of this admission I do not reasonably expected evaluation and management of this problem will require more than a 96 hour hospital stay. DISPOSITION-anticipate discharge to home after the hospital stay. PRIMARY CARE PROVIDER-Dr. Briscoe
[2021-06-26] MEDS: oxyCODONE 5 MG Tab PO PRN (21:18)
[2021-06-27] MEDS: Acetaminophen 325 MG Tab PO PRN ×2 (03:42→20:21)
[2021-06-27] MEDS: Losartan 25 MG Tab PO SCH (08:14)
[2021-06-27] MEDS: Docusate Sodium 100 MG Cap PO SCH ×3 (08:14→20:24)
[2021-06-27] MEDS: Metoprolol Succinate 25 MG Tab.ER PO SCH (08:15)
[2021-06-27] MEDS ORDERED: Heparin Sodium 5,000 Units/ML Vial ONE (09:53)
[2021-06-27] MEDS ORDERED: Heparin Sodium 5,000 Units/ML Vial IVPUSH ONE (10:15)
[2021-06-27] MEDS: oxyCODONE 5 MG Tab PO PRN (12:55)
[2021-06-27] MEDS: Heparin Sodium/D5W 25,000 UNITS/500 ML BAG IV SCH (15:49)
--- NOTE | 2021-06-27 19:19 | PCM.PN ---
- General Info Date of Service: 06/27/21 Subjective Update: Ms. Bello has remained fairly stable since yesterday. Hemoglobin did drop last night and she required transfusion of 1 unit of red blood cells. Continues to n ote some blood in the stool. She otherwise feels relatively well and is tolerating her current diet. Functional Status: Reports: Tolerating Diet, Ambulating, Urinating - Review of Systems General: Reports: No Symptoms Pulmonary: Reports: No Symptoms Cardiovascular: Reports: No Symptoms Gastrointestinal: Reports: Hematochezia. Denies: Abdominal Pain, Difficulty Swallowing, Melena, Nausea, Vomiting Genitourinary: Reports: No Symptoms - Patient Data Vitals - Most Recent: Last Vital Signs Temp 97.7 F 06/27/21 18:42 Pulse 87 06/27/21 18:42 Resp 18 06/27/21 18:42 BP 114/63 06/27/21 18:42 Pulse Ox 94 L 06/27/21 18:42 Weight - Most Recent: 185 lb 12.8 oz I&O - Last 24 Hours: Intake & Output 06/27/21 06/27/21 06/27/21 06:59 14:59 22:59 Intake Total 653 Balance 653 Lab Results Last 24 Hours: Laboratory Results - last 24 hr 06/24/21 06/26/21 06/26/21 Range/Units 13:06 21:02 21:02 WBC (4.5-11.0) K/uL RBC (3.30-5.50) M/uL Hgb 7.2 L (12.0-15.0) g/dL Hct (36.0-48.0) % MCV (80-98) fL MCH (27-31) pg MCHC (32-36) % Plt Count (150-400) K/uL Neut % (Auto) (36-66) % Lymph % (Auto) (24-44) % Sequoyah % (Auto) (2-6) % Eos % (Auto) (2-4) % Baso % (Auto) (0-1) % APTT 54.8 H (21.4-31.8) sec Sodium (140-148) mmol/L Potassium (3.6-5.2) mmol/L Chloride (100-108) mmol/L Carbon Dioxide (21-32) mmol/L Anion Gap (5.0-14.0) mmol/L BUN (7-18) mg/dL Creatinine (0.6-1.0) mg/dL Est Cr Clr Drug Dosing mL/min Estimated GFR (MDRD) (>60) Glucose (74-106) mg/dL Calcium (8.5-10.1) mg/dL Blood Type A NEGATIVE Gel Antibody Screen Negative Crossmatch See Detail 06/27/21 06/27/21 06/27/21 Range/Units 03:16 05:03 05:03 WBC 9.4 (4.5-11.0) K/uL RBC 3.03 L (3.30-5.50) M/uL Hgb 8.2 L (12.0-15.0) g/dL Hct 25.5 L (36.0-48.0) % MCV 84 (80-98) fL MCH 27 (27-31) pg MCHC 32 (32-36) % Plt Count 357 (150-400) K/uL Neut % (Auto) 72.4 H (36-66) % Lymph % (Auto) 20.2 L (24-44) % Sequoyah % (Auto) 6.3 H (2-6) % Eos % (Auto) 1.0 L (2-4) % Baso % (Auto) 0.1 (0-1) % APTT 52.4 H (21.4-31.8) sec Sodium 137 L (140-148) mmol/L Potassium 4.3 (3.6-5.2) mmol/L Chloride 104 (100-108) mmol/L Carbon Dioxide 24 (21-32) mmol/L Anion Gap 13.3 (5.0-14.0) mmol/L BUN 13 (7-18) mg/dL Creatinine 0.8 (0.6-1.0) mg/dL Est Cr Clr Drug Dosing 50.05 mL/min Estimated GFR (MDRD) > 60 (>60) Glucose 98 (74-106) mg/dL Calcium 7.8 L (8.5-10.1) mg/dL Blood Type Gel Antibody Screen Crossmatch 06/27/21 06/27/21 06/27/21 Range/Units 09:00 16:03 18:34 WBC (4.5-11.0) K/uL RBC (3.30-5.50) M/uL Hgb 8.4 L (12.0-15.0) g/dL Hct (36.0-48.0) % MCV (80-98) fL MCH (27-31) pg MCHC (32-36) % Plt Count (150-400) K/uL Neut % (Auto) (36-66) % Lymph % (Auto) (24-44) % Sequoyah % (Auto) (2-6) % Eos % (Auto) (2-4) % Baso % (Auto) (0-1) % APTT 49.3 H 67.6 H (21.4-31.8) sec Sodium (140-148) mmol/L Potassium (3.6-5.2) mmol/L Chloride (100-108) mmol/L Carbon Dioxide (21-32) mmol/L Anion Gap (5.0-14.0) mmol/L BUN (7-18) mg/dL Creatinine (0.6-1.0) mg/dL Est Cr Clr Drug Dosing mL/min Estimated GFR (MDRD) (>60) Glucose (74-106) mg/dL Calcium (8.5-10.1) mg/dL Blood Type Gel Antibody Screen Crossmatch Med Orders - Current: Current Medications Acetaminophen (Acetaminophen 325 Mg Tab) 650 mg PO Q4H PRN PRN Reason: Pain (Mild 1-3)/fever Last Admin: 06/27/21 03:42 Dose: 650 mg Documented by: Docusate Sodium (Docusate Sodium 100 Mg Cap) 200 mg PO BID [facility] Last Admin: 06/27/21 09:00 Dose: 200 mg Documented by: Heparin Sodium/Dextrose (Heparin 25,000 Units In D5w 500 Ml) 25,000 units in 500 mls @ 26.036 mls/hr IV TITRATE LEIA; Protocol Last Admin: 06/27/21 15:49 Dose: 15.4 units/kg/hr, 24.449 mls/hr Documented by: Losartan Potassium (Losartan 25 Mg Tab) 25 mg PO DAILY [facility] Last Admin: 06/27/21 08:14 Dose: 25 mg Documented by: Metoprolol Succinate (Metoprolol Succinate 25 Mg Tab.Er) 25 mg PO DAILY [facility] Last Admin: 06/27/21 08:15 Dose: 25 mg Documented by: Ondansetron HCl (Ondansetron 4 Mg/2 Ml Sdv) 4 mg IV Q4H PRN PRN Reason: Nausea/Vomiting Oxycodone HCl (Oxycodone 5 Mg Tab) 5 mg PO Q4H PRN PRN Reason: Pain (moderate 4-6) Last Admin: 06/27/21 12:55 Dose: 5 mg Documented by: Sodium Chloride (Sodium Chloride 0.9% 10 Ml Syringe) 10 ml FLUSH ASDIRECTED PRN PRN Reason: Keep Vein Open Discontinued Medications Bisacodyl (Bisacodyl 5 Mg Tab) 10 mg PO ONETIME ONE Stop: 06/24/21 15:58 Last Admin: 06/24/21 16:47 Dose: 10 mg Documented by: Bisacodyl (Bisacodyl 5 Mg Tab) 10 mg PO ONETIME ONE Stop: 06/24/21 20:01 Last Admin: 06/24/21 21:17 Dose: 10 mg Documented by: Fentanyl (Fentanyl 100 Mcg/2 Ml Sdv) Confirm Administered Dose 100 mcg .ROUTE .STK-MED ONE Stop: 06/25/21 11:17 Heparin Sodium (Porcine) (Heparin Sodium 5,000 Units/Ml Vial) 5,000 units IVPUSH ONETIME ONE Stop: 06/24/21 21:01 Last Admin: 06/24/21 21:03 Dose: Not Given Documented by: Heparin Sodium (Porcine) (Heparin Sodium 5,000 Units/Ml Vial) 1,500 units IVPUSH .BOLUS ONE Stop: 06/26/21 14:46 Last Admin: 06/26/21 14:30 Dose: 1,500 units Documented by: Heparin Sodium (Porcine) (Heparin Sodium 5,000 Units/Ml Vial) Confirm Administered Dose 5,000 units .ROUTE .STK-MED ONE Stop: 06/27/21 09:54 Last Admin: 06/27/21 10:01 Dose: Not Given Documented by: Heparin Sodium (Porcine) (Heparin Sodium 5,000 Units/Ml Vial) 1,500 units IVPUSH ONETIME ONE Stop: 06/27/21 10:16 Last Admin: 06/27/21 10:18 Dose: 1,500 units Documented by: Phytonadione 5 mg/ Sodium (Chloride) 50.5 mls @ 100 mls/hr IV NOW ONE Stop: 06/24/21 13:36 Last Admin: 06/24/21 13:24 Dose: 100 mls/hr Documented by: Sodium Chloride (Normal Saline) 1,000 mls @ 125 mls/hr IV ASDIRECTED [facility] Last Admin: 06/25/21 14:14 Dose: 125 mls/hr Documented by: Potassium Chloride 20 meq/ (Premix) 100 mls @ 50 mls/hr IV Q2H [facility] Stop: 06/25/21 12:59 Last Admin: 06/25/21 11:31 Dose: 50 mls/hr Documented by: Polyethylene Glycol (Polyethylene Glycol 3350 Powder 238 Gm Bot) 238 gm PO ONETIME ONE Stop: 06/24/21 17:01 Last Admin: 06/24/21 17:38 Dose: 238 gm Documented by: Potassium Chloride (Potassium Chloride 20 Meq Tab.Er) 40 meq PO ONETIME ONE Stop: 06/25/21 06:36 Last Admin: 06/25/21 07:12 Dose: 40 meq Documented by: Potassium Chloride (Potassium Chloride 20 Meq Tab.Er) 40 meq PO ONETIME ONE Stop: 06/26/21 09:01 Last Admin: 06/26/21 09:05 Dose: 40 meq Documented by: Potassium Chloride (Potassium Chloride 20 Meq Tab.Er) 40 meq PO ONETIME ONE Stop: 06/26/21 17:31 Last Admin: 06/26/21 17:28 Dose: 40 meq Documented by: Propofol (Propofol 200 Mg/20 Ml Sdv) Confirm Administered Dose 200 mg .ROUTE .STK-MED ONE Stop: 06/25/21 11:17 - Exam Quality Assessment: DVT Prophylaxis General: Alert, Oriented, Cooperative, No Acute Distress Lungs: Clear to Auscultation, Normal Respiratory Effort Cardiovascular: Regular Rate, Regular Rhythm, No Murmurs GI/Abdominal Exam: Soft, Non-Tender, No Organomegaly, No Distention Extremities: Non-Tender, No Pedal Edema - Patient Data Lab Results Last 24 hrs: Laboratory Results - last 24 hr 06/24/21 06/26/21 06/26/21 Range/Units 13:06 21:02 21:02 WBC (4.5-11.0) K/uL RBC (3.30-5.50) M/uL Hgb 7.2 L (12.0-15.0) g/dL Hct (36.0-48.0) % MCV (80-98) fL MCH (27-31) pg MCHC (32-36) % Plt Count (150-400) K/uL Neut % (Auto) (36-66) % Lymph % (Auto) (24-44) % Sequoyah % (Auto) (2-6) % Eos % (Auto) (2-4) % Baso % (Auto) (0-1) % APTT 54.8 H (21.4-31.8) sec Sodium (140-148) mmol/L Potassium (3.6-5.2) mmol/L Chloride (100-108) mmol/L Carbon Dioxide (21-32) mmol/L Anion Gap (5.0-14.0) mmol/L BUN (7-18) mg/dL Creatinine (0.6-1.0) mg/dL Est Cr Clr Drug Dosing mL/min Estimated GFR (MDRD) (>60) Glucose (74-106) mg/dL Calcium (8.5-10.1) mg/dL Blood Type A NEGATIVE Gel Antibody Screen Negative Crossmatch See Detail 06/27/21 06/27/21 06/27/21 Range/Units 03:16 05:03 05:03 WBC 9.4 (4.5-11.0) K/uL RBC 3.03 L (3.30-5.50) M/uL Hgb 8.2 L (12.0-15.0) g/dL Hct 25.5 L (36.0-48.0) % MCV 84 (80-98) fL MCH 27 (27-31) pg MCHC 32 (32-36) % Plt Count 357 (150-400) K/uL Neut % (Auto) 72.4 H (36-66) % Lymph % (Auto) 20.2 L (24-44) % Sequoyah % (Auto) 6.3 H (2-6) % Eos % (Auto) 1.0 L (2-4) % Baso % (Auto) 0.1 (0-1) % APTT 52.4 H (21.4-31.8) sec Sodium 137 L (140-148) mmol/L Potassium 4.3 (3.6-5.2) mmol/L Chloride 104 (100-108) mmol/L Carbon Dioxide 24 (21-32) mmol/L Anion Gap 13.3 (5.0-14.0) mmol/L BUN 13 (7-18) mg/dL Creatinine 0.8 (0.6-1.0) mg/dL Est Cr Clr Drug Dosing 50.05 mL/min Estimated GFR (MDRD) > 60 (>60) Glucose 98 (74-106) mg/dL Calcium 7.8 L (8.5-10.1) mg/dL Blood Type Gel Antibody Screen Crossmatch 06/27/21 06/27/21 06/27/21 Range/Units 09:00 16:03 18:34 WBC (4.5-11.0) K/uL RBC (3.30-5.50) M/uL Hgb 8.4 L (12.0-15.0) g/dL Hct (36.0-48.0) % MCV (80-98) fL MCH (27-31) pg MCHC (32-36) % Plt Count (150-400) K/uL Neut % (Auto) (36-66) % Lymph % (Auto) (24-44) % Sequoyah % (Auto) (2-6) % Eos % (Auto) (2-4) % Baso % (Auto) (0-1) % APTT 49.3 H 67.6 H (21.4-31.8) sec Sodium (140-148) mmol/L Potassium (3.6-5.2) mmol/L Chloride (100-108) mmol/L Carbon Dioxide (21-32) mmol/L Anion Gap (5.0-14.0) mmol/L BUN (7-18) mg/dL Creatinine (0.6-1.0) mg/dL Est Cr Clr Drug Dosing mL/min Estimated GFR (MDRD) (>60) Glucose (74-106) mg/dL Calcium (8.5-10.1) mg/dL Blood Type Gel Antibody Screen Crossmatch Result Diagrams: 06/27/21 18:34 06/27/21 05:03 Sepsis Event Note - Evaluation Sepsis Screening Result: No Definite Risk - Focused Exam Vital Signs: Vital Signs Temp Pulse Pulse Resp BP BP BP 06/27/21 18:42 97.7 F 87 18 114/63 06/27/21 15:48 96.8 F L 89 16 119/45 L 06/27/21 11:00 97.3 F 16 128/55 L 06/27/21 08:15 82 128/52 L 06/27/21 08:14 128/52 L Pulse Ox 06/27/21 18:42 94 L 06/27/21 15:48 95 06/27/21 11:00 95 06/27/21 08:15 06/27/21 08:14 - Problem List Review Problem List Initiated/Reviewed/Updated: Yes - My Orders Last 24 Hours: My Active Orders 06/27/21 22:30 aPTT [PTT,PARTIAL THROMBOPLSTIN TIME] [COAG] Routine 06/28/21 05:11 HEMOGLOBIN [HEME] AM PTT,PARTIAL THROMBOPLSTIN TIME [COAG] AM - Plan Plan:: ASSESSMENT AND PLAN ACUTE LOWER GI BLEED-stable since admission, she does continue to pass small amounts of red blood per rectum and did require transfusion of 1 unit of red blood cells last night. -Management of anticoagulation as below -Soft low residue diet -Serial hemoglobin levels -Surgical follow-up per Dr. Quevedo PROBABLE RECTAL CARCINOMA-likely cause of recent bleeding -Transfer to tertiary care center when bed becomes available -Managed bowel regimen for soft stools ACUTE BLOOD LOSS ANEMIA-secondary to GI bleed -Management as above STATUS POST AORTIC VALVE REPLACEMENT-surgery for valve replacement 3 weeks ago w ith a mechanical valve. -Continue IV heparin per protocol -Continue to hold warfarin MAINTENANCE ISSUES -DVT prophylaxis; anticoagulation as above -GI prophylaxis; not indicated -Webber catheter; not indicated -Nutrition; full liquid diet -Nicotine dependence; not required CODE STATUS-FULL CODE ADMISSION STATUS-patient will be admitted to inpatient status, expect at least a 2 night hospital stay for evaluation and management of problems as outlined above. At the time of this admission I do not reasonably expected evaluation and management of this problem will require more than a 96 hour hospital stay. DISPOSITION-anticipate discharge to home after the hospital stay. PRIMARY CARE PROVIDER-Dr. Briscoe
[2021-06-28] MEDS: Docusate Sodium 100 MG Cap PO SCH ×3 (09:06→20:40)
[2021-06-28] MEDS: Losartan 25 MG Tab PO SCH (09:07)
[2021-06-28] MEDS: Metoprolol Succinate 25 MG Tab.ER PO SCH (09:07)
--- NOTE | 2021-06-28 13:36 | PCM.PN ---
- General Info Date of Service: 06/28/21 Subjective Update: Ms. Bello show evidence of ongoing slow active bleeding. Pathology results have come back from the biopsy performed at the time of colonoscopy and do confirm underlying adenocarcinoma. Still waiting for a bed to open up a tertiary care center for transfer and definitive treatment with probable surgery. Functional Status: Reports: Tolerating Diet, Ambulating, Urinating - Review of Systems General: Reports: Weakness, Fatigue. Denies: Fever, Chills Pulmonary: Reports: No Symptoms Cardiovascular: Reports: No Symptoms Gastrointestinal: Reports: Hematochezia. Denies: Abdominal Pain, Difficulty Swallowing, Melena, Nausea, Vomiting Genitourinary: Reports: No Symptoms - Patient Data Vitals - Most Recent: Last Vital Signs Temp 97.1 F 06/28/21 11:55 Pulse 93 06/28/21 11:55 Resp 16 06/28/21 11:55 BP 127/46 L 06/28/21 11:55 Pulse Ox 91 L 06/28/21 11:55 Weight - Most Recent: 190 lb 11.2 oz Lab Results Last 24 Hours: Laboratory Results - last 24 hr 06/27/21 06/27/21 06/27/21 Range/Units 16:03 18:30 18:34 Hgb 8.4 L (12.0-15.0) g/dL PT 11.3 H (9.2-10.6) sec INR 1.1 APTT 67.6 H (21.4-31.8) sec 06/27/21 06/28/21 06/28/21 Range/Units 22:22 05:40 05:40 Hgb 7.9 L (12.0-15.0) g/dL PT (9.2-10.6) sec INR APTT 78.6 H* 58.6 H (21.4-31.8) sec 06/28/21 Range/Units 10:40 Hgb (12.0-15.0) g/dL PT (9.2-10.6) sec INR APTT 76.7 H* (21.4-31.8) sec Med Orders - Current: Current Medications Acetaminophen (Acetaminophen 325 Mg Tab) 650 mg PO Q4H PRN PRN Reason: Pain (Mild 1-3)/fever Last Admin: 06/27/21 20:21 Dose: 650 mg Documented by: Docusate Sodium (Docusate Sodium 100 Mg Cap) 200 mg PO BID [facility] Last Admin: 06/28/21 09:06 Dose: Not Given Documented by: Heparin Sodium/Dextrose (Heparin 25,000 Units In D5w 500 Ml) 25,000 units in 50 0 mls @ 26.036 mls/hr IV TITRATE LEIA; Protocol Last Titration: 06/28/21 11:34 Dose: 11.4 units/kg/hr, 18.098 mls/hr Documented by: Losartan Potassium (Losartan 25 Mg Tab) 25 mg PO DAILY [facility] Last Admin: 06/28/21 09:07 Dose: 25 mg Documented by: Metoprolol Succinate (Metoprolol Succinate 25 Mg Tab.Er) 25 mg PO DAILY [facility] Last Admin: 06/28/21 09:07 Dose: 25 mg Documented by: Ondansetron HCl (Ondansetron 4 Mg/2 Ml Sdv) 4 mg IV Q4H PRN PRN Reason: Nausea/Vomiting Last Admin: 06/28/21 04:03 Dose: 4 mg Documented by: Oxycodone HCl (Oxycodone 5 Mg Tab) 5 mg PO Q4H PRN PRN Reason: Pain (moderate 4-6) Last Admin: 06/27/21 12:55 Dose: 5 mg Documented by: Sodium Chloride (Sodium Chloride 0.9% 10 Ml Syringe) 10 ml FLUSH ASDIRECTED PRN PRN Reason: Keep Vein Open Discontinued Medications Bisacodyl (Bisacodyl 5 Mg Tab) 10 mg PO ONETIME ONE Stop: 06/24/21 15:58 Last Admin: 06/24/21 16:47 Dose: 10 mg Documented by: Bisacodyl (Bisacodyl 5 Mg Tab) 10 mg PO ONETIME ONE Stop: 06/24/21 20:01 Last Admin: 06/24/21 21:17 Dose: 10 mg Documented by: Fentanyl (Fentanyl 100 Mcg/2 Ml Sdv) Confirm Administered Dose 100 mcg .ROUTE .STK-MED ONE Stop: 06/25/21 11:17 Heparin Sodium (Porcine) (Heparin Sodium 5,000 Units/Ml Vial) 5,000 units IVPUSH ONETIME ONE Stop: 06/24/21 21:01 Last Admin: 06/24/21 21:03 Dose: Not Given Documented by: Heparin Sodium (Porcine) (Heparin Sodium 5,000 Units/Ml Vial) 1,500 units IVPUSH .BOLUS ONE Stop: 06/26/21 14:46 Last Admin: 06/26/21 14:30 Dose: 1,500 units Documented by: Heparin Sodium (Porcine) (Heparin Sodium 5,000 Units/Ml Vial) Confirm Administered Dose 5,000 units .ROUTE .STK-MED ONE Stop: 06/27/21 09:54 Last Admin: 06/27/21 10:01 Dose: Not Given Documented by: Heparin Sodium (Porcine) (Heparin Sodium 5,000 Units/Ml Vial) 1,500 units IVPUSH ONETIME ONE Stop: 06/27/21 10:16 Last Admin: 06/27/21 10:18 Dose: 1,500 units Documented by: Phytonadione 5 mg/ Sodium (Chloride) 50.5 mls @ 100 mls/hr IV NOW ONE Stop: 06/24/21 13:36 Last Admin: 06/24/21 13:24 Dose: 100 mls/hr Documented by: Sodium Chloride (Normal Saline) 1,000 mls @ 125 mls/hr IV ASDIRECTED [facility] Last Admin: 06/25/21 14:14 Dose: 125 mls/hr Documented by: Potassium Chloride 20 meq/ (Premix) 100 mls @ 50 mls/hr IV Q2H [facility] Stop: 06/25/21 12:59 Last Admin: 06/25/21 11:31 Dose: 50 mls/hr Documented by: Polyethylene Glycol (Polyethylene Glycol 3350 Powder 238 Gm Bot) 238 gm PO ONETIME ONE Stop: 06/24/21 17:01 Last Admin: 06/24/21 17:38 Dose: 238 gm Documented by: Potassium Chloride (Potassium Chloride 20 Meq Tab.Er) 40 meq PO ONETIME ONE Stop: 06/25/21 06:36 Last Admin: 06/25/21 07:12 Dose: 40 meq Documented by: Potassium Chloride (Potassium Chloride 20 Meq Tab.Er) 40 meq PO ONETIME ONE Stop: 06/26/21 09:01 Last Admin: 06/26/21 09:05 Dose: 40 meq Documented by: Potassium Chloride (Potassium Chloride 20 Meq Tab.Er) 40 meq PO ONETIME ONE Stop: 06/26/21 17:31 Last Admin: 06/26/21 17:28 Dose: 40 meq Documented by: Propofol (Propofol 200 Mg/20 Ml Sdv) Confirm Administered Dose 200 mg .ROUTE .S TK-MED ONE Stop: 06/25/21 11:17 - Exam Quality Assessment: DVT Prophylaxis General: Alert, Oriented, Cooperative, Mild Distress Lungs: Clear to Auscultation, Normal Respiratory Effort Cardiovascular: Regular Rate, Regular Rhythm, No Murmurs GI/Abdominal Exam: Soft, Non-Tender, No Organomegaly, No Distention Extremities: Non-Tender, No Pedal Edema - Patient Data Lab Results Last 24 hrs: Laboratory Results - last 24 hr 06/27/21 06/27/21 06/27/21 Range/Units 16:03 18:30 18:34 Hgb 8.4 L (12.0-15.0) g/dL PT 11.3 H (9.2-10.6) sec INR 1.1 APTT 67.6 H (21.4-31.8) sec 06/27/21 06/28/21 06/28/21 Range/Units 22:22 05:40 05:40 Hgb 7.9 L (12.0-15.0) g/dL PT (9.2-10.6) sec INR APTT 78.6 H* 58.6 H (21.4-31.8) sec 06/28/21 Range/Units 10:40 Hgb (12.0-15.0) g/dL PT (9.2-10.6) sec INR APTT 76.7 H* (21.4-31.8) sec Result Diagrams: 06/28/21 05:40 06/27/21 05:03 Sepsis Event Note - Evaluation Sepsis Screening Result: No Definite Risk - Focused Exam Vital Signs: Vital Signs Temp Pulse Pulse Resp BP BP BP 06/28/21 11:55 97.1 F 93 16 127/46 L 06/28/21 09:07 89 112/41 L 06/28/21 09:00 96.8 F L 89 18 112/41 L 06/28/21 03:00 96.2 F L 80 18 121/61 Pulse Ox 06/28/21 11:55 91 L 06/28/21 09:07 06/28/21 09:00 96 06/28/21 03:00 95 - Problem List Review Problem List Initiated/Reviewed/Updated: Yes - My Orders Last 24 Hours: My Active Orders 06/28/21 17:00 HGB [HEMOGLOBIN] [HEME] Stat PTT,PARTIAL THROMBOPLSTIN TIME [COAG] Stat 06/28/21 17:30 PTT,PARTIAL THROMBOPLSTIN TIME [COAG] Routine 06/29/21 05:00 PTT,PARTIAL THROMBOPLSTIN TIME [COAG] Timed 06/29/21 05:11 HGB [HEMOGLOBIN] [HEME] AM - Plan Plan:: ASSESSMENT AND PLAN ACUTE LOWER GI BLEED-stable since admission, she does continue to pass small amounts of red blood per rectum -Management of anticoagulation as below -Soft low residue diet -Serial hemoglobin levels -Surgical follow-up per Dr. Quevedo RECTAL CARCINOMA-likely cause of recent bleeding. 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 -Continue IV heparin per protocol -Continue to hold warfarin MAINTENANCE ISSUES -DVT prophylaxis; anticoagulation as above -GI prophylaxis; not indicated -Webber catheter; not indicated -Nutrition; full liquid diet -Nicotine dependence; not required CODE STATUS-FULL CODE ADMISSION STATUS-patient will be admitted to inpatient status, expect at least a 2 night hospital stay for evaluation and management of problems as outlined above. At the time of this admission I do not reasonably expected evaluation and management of this problem will require more than a 96 hour hospital stay. DISPOSITION-anticipate discharge to home after the hospital stay. PRIMARY CARE PROVIDER-Dr. Briscoe
[2021-06-28] MEDS: Heparin Sodium/D5W 25,000 UNITS/500 ML BAG IV SCH (14:57)
[2021-06-28] MEDS ORDERED: Heparin Sodium 5,000 Units/ML Vial IVPUSH ONE (18:06)
[2021-06-28] MEDS: Acetaminophen 325 MG Tab PO PRN (22:10)
[2021-06-28] MEDS: oxyCODONE 5 MG Tab PO PRN (22:10)
[2021-06-29] MEDS: Docusate Sodium 100 MG Cap PO SCH (08:12)
[2021-06-29] MEDS: Metoprolol Succinate 25 MG Tab.ER PO SCH (08:12)
[2021-06-29] MEDS: Losartan 25 MG Tab PO SCH (08:13)
[2021-06-29] MEDS: Loperamide 2 MG Cap PO PRN ×2 (10:33→18:25)
[2021-06-29] MEDS ORDERED: Heparin Sodium 5,000 Units/ML Vial IVPUSH ONE (11:11)
[2021-06-29] MEDS: Acetaminophen 325 MG Tab PO PRN (11:25)
[2021-06-29] MEDS ORDERED: Sodium Chloride 0.9% 1,000 ML IV ONE (12:00)
[2021-06-29] MEDS: Heparin Sodium/D5W 25,000 UNITS/500 ML BAG IV SCH (15:54)
--- NOTE | 2021-06-29 17:16 | PCM.PN ---
- General Info Date of Service: 06/29/21 Subjective Update: Ms. Bello able over the last 24 hours. Hemoglobin has been stable on follow-up with no evidence of active bleeding at the present time. She is experiencing so me diarrhea, but other than that is feeling fairly well. Functional Status: Reports: Tolerating Diet, Ambulating, Urinating - Review of Systems General: Reports: No Symptoms Pulmonary: Reports: No Symptoms Cardiovascular: Reports: No Symptoms Gastrointestinal: Reports: Diarrhea. Denies: Abdominal Pain, Difficulty Swallowing, Hematochezia, Melena, Nausea, Vomiting Genitourinary: Reports: No Symptoms - Patient Data Vitals - Most Recent: Last Vital Signs Temp 96.1 F L 06/29/21 15:55 Pulse 84 06/29/21 15:55 Resp 16 06/29/21 15:55 BP 87/50 L 06/29/21 15:55 Pulse Ox 90 L 06/29/21 15:55 Weight - Most Recent: 189 lb 9.561 oz I&O - Last 24 Hours: Intake & Output 06/29/21 06/29/21 06/29/21 06:59 14:59 22:59 Intake Total 1299 500 Balance 1299 500 Lab Results Last 24 Hours: Laboratory Results - last 24 hr 06/24/21 06/28/21 06/28/21 Range/Units 13:06 17:26 17:26 Hgb 8.6 L (12.0-15.0) g/dL APTT 45.3 H (21.4-31.8) sec Crossmatch See Detail 06/28/21 06/29/21 06/29/21 Range/Units 22:03 04:30 04:30 Hgb 7.9 L (12.0-15.0) g/dL APTT 75.7 H 60.2 H (21.4-31.8) sec Crossmatch 06/29/21 Range/Units 10:24 Hgb (12.0-15.0) g/dL APTT 46.5 H (21.4-31.8) sec Crossmatch Med Orders - Current: Current Medications Acetaminophen (Acetaminophen 325 Mg Tab) 650 mg PO Q4H PRN PRN Reason: Pain (Mild 1-3)/fever Last Admin: 06/29/21 11:25 Dose: 650 mg Documented by: Heparin Sodium/Dextrose (Heparin 25,000 Units In D5w 500 Ml) 25,000 units in 500 mls @ 26.036 mls/hr IV TITRATE [facility]; Protocol Last Admin: 06/29/21 15:54 Dose: 13.4 units/kg/hr, 21.274 mls/hr Documented by: Loperamide HCl (Loperamide 2 Mg Cap) 2 mg PO Q4H PRN PRN Reason: Diarrhea Last Admin: 06/29/21 10:33 Dose: 2 mg Documented by: Losartan Potassium (Losartan 25 Mg Tab) 25 mg PO DAILY [facility] Last Admin: 06/29/21 08:13 Dose: 25 mg Documented by: Metoprolol Succinate (Metoprolol Succinate 25 Mg Tab.Er) 25 mg PO DAILY [facility] Last Admin: 06/29/21 08:12 Dose: 25 mg Documented by: Ondansetron HCl (Ondansetron 4 Mg/2 Ml Sdv) 4 mg IV Q4H PRN PRN Reason: Nausea/Vomiting Last Admin: 06/28/21 04:03 Dose: 4 mg Documented by: Oxycodone HCl (Oxycodone 5 Mg Tab) 5 mg PO Q4H PRN PRN Reason: Pain (moderate 4-6) Last Admin: 06/28/21 22:10 Dose: 5 mg Documented by: Sodium Chloride (Sodium Chloride 0.9% 10 Ml Syringe) 10 ml FLUSH ASDIRECTED PRN PRN Reason: Keep Vein Open Discontinued Medications Bisacodyl (Bisacodyl 5 Mg Tab) 10 mg PO ONETIME ONE Stop: 06/24/21 15:58 Last Admin: 06/24/21 16:47 Dose: 10 mg Documented by: Bisacodyl (Bisacodyl 5 Mg Tab) 10 mg PO ONETIME ONE Stop: 06/24/21 20:01 Last Admin: 06/24/21 21:17 Dose: 10 mg Documented by: Docusate Sodium (Docusate Sodium 100 Mg Cap) 200 mg PO BID [facility] Last Admin: 06/29/21 08:12 Dose: Not Given Documented by: Fentanyl (Fentanyl 100 Mcg/2 Ml Sdv) Confirm Administered Dose 100 mcg .ROUTE .STK-MED ONE Stop: 06/25/21 11:17 Heparin Sodium (Porcine) (Heparin Sodium 5,000 Units/Ml Vial) 5,000 units IVP [facility] ONETIME ONE Stop: 06/24/21 21:01 Last Admin: 06/24/21 21:03 Dose: Not Given Documented by: Heparin Sodium (Porcine) (Heparin Sodium 5,000 Units/Ml Vial) 1,500 units IVPUSH .BOLUS ONE Stop: 06/26/21 14:46 Last Admin: 06/26/21 14:30 Dose: 1,500 units Documented by: Heparin Sodium (Porcine) (Heparin Sodium 5,000 Units/Ml Vial) Confirm Administered Dose 5,000 units .ROUTE .STK-MED ONE Stop: 06/27/21 09:54 Last Admin: 06/27/21 10:01 Dose: Not Given Documented by: Heparin Sodium (Porcine) (Heparin Sodium 5,000 Units/Ml Vial) 1,500 units IVPUSH ONETIME ONE Stop: 06/27/21 10:16 Last Admin: 06/27/21 10:18 Dose: 1,500 units Documented by: Heparin Sodium (Porcine) (Heparin Sodium 5,000 Units/Ml Vial) 1,500 units IVPUSH .BOLUS ONE Stop: 06/28/21 18:07 Last Admin: 06/28/21 18:14 Dose: 1,500 units Documented by: Heparin Sodium (Porcine) (Heparin Sodium 5,000 Units/Ml Vial) 1,500 units IVPUSH .BOLUS ONE Stop: 06/29/21 11:12 Last Admin: 06/29/21 11:21 Dose: 1,500 units Documented by: Phytonadione 5 mg/ Sodium (Chloride) 50.5 mls @ 100 mls/hr IV NOW ONE Stop: 06/24/21 13:36 Last Admin: 06/24/21 13:24 Dose: 100 mls/hr Documented by: Sodium Chloride (Normal Saline) 1,000 mls @ 125 mls/hr IV ASDIRECTED [facility] Last Admin: 06/25/21 14:14 Dose: 125 mls/hr Documented by: Potassium Chloride 20 meq/ (Premix) 100 mls @ 50 mls/hr IV Q2H [facility] Stop: 06/25/21 12:59 Last Admin: 06/25/21 11:31 Dose: 50 mls/hr Documented by: Sodium Chloride (Normal Saline) 1,000 mls @ 500 mls/hr IV ASDIRECTED ONE Stop: 06/29/21 13:59 Last Admin: 06/29/21 12:15 Dose: 500 mls/hr Documented by: Polyethylene Glycol (Polyethylene Glycol 3350 Powder 238 Gm Bot) 238 gm PO ONETIME ONE Stop: 06/24/21 17:01 Last Admin: 06/24/21 17:38 Dose: 238 gm Documented by: Potassium Chloride (Potassium Chloride 20 Meq Tab.Er) 40 meq PO ONETIME ONE Stop: 06/25/21 06:36 Last Admin: 06/25/21 07:12 Dose: 40 meq Documented by: Potassium Chloride (Potassium Chloride 20 Meq Tab.Er) 40 meq PO ONETIME ONE Stop: 06/26/21 09:01 Last Admin: 06/26/21 09:05 Dose: 40 meq Documented by: Potassium Chloride (Potassium Chloride 20 Meq Tab.Er) 40 meq PO ONETIME ONE Stop: 06/26/21 17:31 Last Admin: 06/26/21 17:28 Dose: 40 meq Documented by: Propofol (Propofol 200 Mg/20 Ml Sdv) Confirm Administered Dose 200 mg .ROUTE .STK-MED ONE Stop: 06/25/21 11:17 - Exam Quality Assessment: DVT Prophylaxis General: Alert, Oriented, Cooperative, Mild Distress Lungs: Clear to Auscultation, Normal Respiratory Effort Cardiovascular: Regular Rate, Regular Rhythm, No Murmurs GI/Abdominal Exam: Soft, Non-Tender, No Organomegaly, No Distention Extremities: Non-Tender, No Pedal Edema - Patient Data Lab Results Last 24 hrs: Laboratory Results - last 24 hr 06/24/21 06/28/21 06/28/21 Range/Units 13:06 17:26 17:26 Hgb 8.6 L (12.0-15.0) g/dL APTT 45.3 H (21.4-31.8) sec Crossmatch See Detail 06/28/21 06/29/21 06/29/21 Range/Units 22:03 04:30 04:30 Hgb 7.9 L (12.0-15.0) g/dL APTT 75.7 H 60.2 H (21.4-31.8) sec Crossmatch 06/29/21 Range/Units 10:24 Hgb (12.0-15.0) g/dL APTT 46.5 H (21.4-31.8) sec Crossmatch Result Diagrams: 06/29/21 04:30 06/27/21 05:03 Sepsis Event Note - Evaluation Sepsis Screening Result: No Definite Risk - Focused Exam Vital Signs: Vital Signs Temp Pulse Pulse Resp BP BP Pulse Ox 06/29/21 15:55 96.1 F L 84 16 87/50 L 90 L 06/29/21 11:50 81/39 L 06/29/21 11:00 96.4 F L 92 16 77/33 L 92 L 06/29/21 08:13 108/52 L 06/29/21 08:12 99 108/52 L 06/29/21 07:00 96.4 F L 99 15 108/52 L 91 L - Problem List Review Problem List Initiated/Reviewed/Updated: Yes - My Orders Last 24 Hours: My Active Orders 06/29/21 10:13 Loperamide [Imodium] 2 mg PO Q4H PRN 06/29/21 16:30 aPTT [PTT,PARTIAL THROMBOPLSTIN TIME] [COAG] Routine 06/30/21 05:00 PTT,PARTIAL THROMBOPLSTIN TIME [COAG] Timed 06/30/21 05:11 HGB [HEMOGLOBIN] [HEME] AM - Plan Plan:: ASSESSMENT AND PLAN ACUTE LOWER GI BLEED-stable since admission, she does continue to pass small amounts of red blood per rectum -Management of anticoagulation as below -Soft low residue diet -Serial hemoglobin levels -Surgical follow-up per Dr. Quevedo RECTAL CARCINOMA-likely cause of recent bleeding. 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 -Continue IV heparin per protocol -Continue to hold warfarin MAINTENANCE ISSUES -DVT prophylaxis; anticoagulation as above -GI prophylaxis; not indicated -Webber catheter; not indicated -Nutrition; full liquid diet -Nicotine dependence; not required CODE STATUS-FULL CODE ADMISSION STATUS-patient will be admitted to inpatient status, expect at least a 2 night hospital stay for evaluation and management of problems as outlined above. At the time of this admission I do not reasonably expected evaluation and management of this problem will require more than a 96 hour hospital stay. DISPOSITION-anticipate discharge to home after the hospital stay. PRIMARY CARE PROVIDER-Dr. Briscoe
[2021-06-29] MEDS ORDERED: Clopidogrel 75 MG Tab PO SCH (18:49)
[2021-06-29] MEDS ORDERED: Aspirin 81 MG Tab.Chew PO SCH (18:50)
--- NOTE | 2021-06-29 19:33 | PCM.DCSUM1 ---
Discharge Summary - Hospital Course Brief History: Ms. Bello is a 76-year-old woman who was admitted through the emergency department with weakness, shortness of breath, and lightheadedness secondary to lower GI bleed and severe anemia. - Discharge Data Discharge Date: 06/29/21 Discharge Disposition: DC/Tfer to Acute Hospital 02 Condition: Serious - Referral to [facility] Primary Care Physician: Damien Briscoe MD - Discharge Diagnosis/Problem(s) (1) History of transcatheter aortic valve replacement (TAVR) SNOMED Code(s): 7296779736481 ICD Code: Z95.2 - PRESENCE OF PROSTHETIC HEART VALVE Status: Acute Current Visit: Yes (2) Rectal carcinoma SNOMED Code(s): 341726088, 707250457 ICD Code: C20 - MALIGNANT NEOPLASM OF RECTUM Status: Acute Current Visit: Yes (3) Rectal bleeding SNOMED Code(s): 99149981 ICD Code: K62.5 - HEMORRHAGE OF ANUS AND RECTUM Status: Acute Current Visit: Yes (4) Supratherapeutic INR SNOMED Code(s): 737255539 ICD Code: R79.1 - ABNORMAL COAGULATION PROFILE Status: Acute Current Visit: Yes (5) Acute blood loss anemia SNOMED Code(s): 010834586 ICD Code: D62 - ACUTE POSTHEMORRHAGIC ANEMIA Status: Acute Current Visit: Yes (6) History of atrial fibrillation SNOMED Code(s): 975694826 ICD Code: Z86.79 - PERSONAL HISTORY OF OTHER DISEASES OF THE CIRCULATORY SYSTEM Status: Chronic Current Visit: No (7) On Coumadin for atrial fibrillation SNOMED Code(s): 80206974 ICD Code: I48.91 - UNSPECIFIED ATRIAL FIBRILLATION; Z79.01 - [facility] (CURRENT) USE OF ANTICOAGULANTS Status: Chronic Current Visit: No - Patient Summary/Data Consults: Consultations 06/24/21 15:57 Consult to Physician [CONS] Routine Consulting Provider: Moses Quevedo Call Completed to Consulting Physician: Yes Reason for Consult: GI bleed, colonoscopy in a.m. Hospital Course: Ms. Bello is a 76-year-old woman who was admitted through the emergency department with weakness and lightheadedness secondary to lower GI bleed. She is status post recent TAVR procedure done for aortic stenosis. She is on long- term oral anticoagulation with warfarin because of atrial fibrillation and was started on aspirin and Plavix after the TAVR procedure. She had been doing well and recovering from her surgery when she noted onset of bloody stools approximately 4 days prior to admission. Since then she continued to experience bloody stools and also has developed significant weakness and lightheadedness. Because of the symptoms she presented to the emergency department. Her INR was found to be supratherapeutic and hemoglobin was very low at 6.0. The plan had been for transfer to a tertiary care center for further management but no beds are available in this region. Because of symptoms and evidence of active bleeding she was transfused 2 units of red blood cells. She received 5 mg of IV vitamin K while in the emergency department and was also transfused 2 units of fresh frozen plasma. INR was monitored closely and IV heparin was initiated when INR fell below desired therapeutic range. She was transfused 1 additional unit of red blood cells in the following morning was seen by Dr. Quevedo for surgical consult. Colonoscopy was performed and she was found to have a mass in the rectum that was felt to be consistent with a rectal carcinoma. Biopsies were obtained at the time of colonoscopy and did return later showing adenocarcinoma consistent with underlying malignancy. She continued to have intermittent blood per rectum over the next few days and did require transfusion of a 4th unit of red blood cells. She was kept at this facility, waiting for a bed at a tertiary care facility for further evaluation and management of her rectal carcinoma and ongoing anticoagulation. Her bleeding did slow and essentially stopped for about 36 hours prior to transfer. Hemoglobin remained stable during this period of time with no further evidence of hematochezia. A bed is now available at [facility] in [facility] and she will be transferred there for further subspecialty evaluation and management. - Patient Instructions Diet: GI Soft/Low Residue/Low Fiber Activity: As Tolerated Other/Special Instructions: Patient will be transferred to [facility] in [facility] via [facility] ambulance - Discharge Plan *PRESCRIPTION DRUG MONITORING PROGRAM REVIEWED*: Not Applicable *COPY OF PRESCRIPTION DRUG MONITORING REPORT IN PATIENT KIN: Not Applicable Home Medications: Home Meds Furosemide [Lasix] 40 mg PO DAILY 11/22/19 [History] Losartan Potassium 20 mg PO DAILY 11/22/19 [History] Metoprolol Succinate [Toprol XL] 25 mg PO DAILY 11/22/19 [History] Multivitamin with Minerals [Multiple Vitamin] 1 tab PO DAILY 11/22/19 [History] Aspirin 81 mg PO DAILY 06/24/21 [History] Clopidogrel [Plavix] 75 mg PO DAILY 06/24/21 [History] Referrals: Damien Briscoe MD [Primary Care Provider] - - Discharge Summary/Plan Comment DC Time >30 min.: No Total # of Minutes for Discharge Time: 30 - Patient Data Vitals - Most Recent: Last Vital Signs Temp 96.1 F L 06/29/21 18:29 Pulse 87 06/29/21 18:29 Resp 16 06/29/21 18:29 BP 101/44 L 06/29/21 18:29 Pulse Ox 90 L 06/29/21 18:29 Weight - Most Recent: 189 lb 9.561 oz I&O - Last 24 hours: Intake & Output 06/29/21 06/29/21 06/29/21 06:59 14:59 22:59 Intake Total 1299 500 Balance 1299 500 Lab Results - Last 24 hrs: Laboratory Results - last 24 hr 06/24/21 06/28/21 06/29/21 Range/Units 13:06 22:03 04:30 Hgb (12.0-15.0) g/dL APTT 75.7 H 60.2 H (21.4-31.8) sec Crossmatch See Detail 06/29/21 06/29/21 06/29/21 Range/Units 04:30 10:24 16:30 Hgb 7.9 L (12.0-15.0) g/dL APTT 46.5 H 61.9 H (21.4-31.8) sec Crossmatch Med Orders - Current: Current Medications Acetaminophen (Acetaminophen 325 Mg Tab) 650 mg PO Q4H PRN PRN Reason: Pain (Mild 1-3)/fever Last Admin: 06/29/21 11:25 Dose: 650 mg Documented by: Aspirin (Aspirin 81 Mg Tab.Chew) 81 mg PO DAILY [facility] Clopidogrel Bisulfate (Clopidogrel 75 Mg Tab) 75 mg PO DAILY [facility] Heparin Sodium/Dextrose (Heparin 25,000 Units In D5w 500 Ml) 25,000 units in 500 mls @ 26.036 mls/hr IV TITRATE [facility]; Protocol Last Admin: 06/29/21 15:54 Dose: 13.4 units/kg/hr, 21.274 mls/hr Documented by: Loperamide HCl (Loperamide 2 Mg Cap) 2 mg PO Q4H PRN PRN Reason: Diarrhea Last Admin: 06/29/21 18:25 Dose: 2 mg Documented by: Losartan Potassium (Losartan 25 Mg Tab) 25 mg PO DAILY [facility] Last Admin: 06/29/21 08:13 Dose: 25 mg Documented by: Metoprolol Succinate (Metoprolol Succinate 25 Mg Tab.Er) 25 mg PO DAILY [facility] Last Admin: 06/29/21 08:12 Dose: 25 mg Documented by: Ondansetron HCl (Ondansetron 4 Mg/2 Ml Sdv) 4 mg IV Q4H PRN PRN Reason: Nausea/Vomiting Last Admin: 06/28/21 04:03 Dose: 4 mg Documented by: Oxycodone HCl (Oxycodone 5 Mg Tab) 5 mg PO Q4H PRN PRN Reason: Pain (moderate 4-6) Last Admin: 06/28/21 22:10 Dose: 5 mg Documented by: Sodium Chloride (Sodium Chloride 0.9% 10 Ml Syringe) 10 ml FLUSH ASDIRECTED PRN PRN Reason: Keep Vein Open Discontinued Medications Aspirin (Aspirin 81 Mg Tab.Chew) 81 mg PO DAILY [facility] Bisacodyl (Bisacodyl 5 Mg Tab) 10 mg PO ONETIME ONE Stop: 06/24/21 15:58 Last Admin: 06/24/21 16:47 Dose: 10 mg Documented by: Bisacodyl (Bisacodyl 5 Mg Tab) 10 mg PO ONETIME ONE Stop: 06/24/21 20:01 Last Admin: 06/24/21 21:17 Dose: 10 mg Documented by: Clopidogrel Bisulfate (Clopidogrel 75 Mg Tab) 75 mg PO DAILY [facility] Docusate Sodium (Docusate Sodium 100 Mg Cap) 200 mg PO BID [facility] Last Admin: 06/29/21 08:12 Dose: Not Given Documented by: Fentanyl (Fentanyl 100 Mcg/2 Ml Sdv) Confirm Administered Dose 100 mcg .ROUTE .STK-MED ONE Stop: 06/25/21 11:17 Heparin Sodium (Porcine) (Heparin Sodium 5,000 Units/Ml Vial) 5,000 units IVPUSH ONETIME ONE Stop: 06/24/21 21:01 Last Admin: 06/24/21 21:03 Dose: Not Given Documented by: Heparin Sodium (Porcine) (Heparin Sodium 5,000 Units/Ml Vial) 1,500 units IVPUSH .BOLUS ONE Stop: 06/26/21 14:46 Last Admin: 06/26/21 14:30 Dose: 1,500 units Documented by: Heparin Sodium (Porcine) (Heparin Sodium 5,000 Units/Ml Vial) Confirm Administered Dose 5,000 units .ROUTE .STK-MED ONE Stop: 06/27/21 09:54 Last Admin: 06/27/21 10:01 Dose: Not Given Documented by: Heparin Sodium (Porcine) (Heparin Sodium 5,000 Units/Ml Vial) 1,500 units IVPUSH ONETIME ONE Stop: 06/27/21 10:16 Last Admin: 06/27/21 10:18 Dose: 1,500 units Documented by: Heparin Sodium (Porcine) (Heparin Sodium 5,000 Units/Ml Vial) 1,500 units IVPUSH .BOLUS ONE Stop: 06/28/21 18:07 Last Admin: 06/28/21 18:14 Dose: 1,500 units Documented by: Heparin Sodium (Porcine) (Heparin Sodium 5,000 Units/Ml Vial) 1,500 units IVPUSH .BOLUS ONE Stop: 06/29/21 11:12 Last Admin: 06/29/21 11:21 Dose: 1,500 units Documented by: Phytonadione 5 mg/ Sodium (Chloride) 50.5 mls @ 100 mls/hr IV NOW ONE Stop: 06/24/21 13:36 Last Admin: 06/24/21 13:24 Dose: 100 mls/hr Documented by: Sodium Chloride (Normal Saline) 1,000 mls @ 125 mls/hr IV ASDIRECTED [facility] Last Admin: 06/25/21 14:14 Dose: 125 mls/hr Documented by: Potassium Chloride 20 meq/ (Premix) 100 mls @ 50 mls/hr IV Q2H [facility] Stop: 06/25/21 12:59 Last Admin: 06/25/21 11:31 Dose: 50 mls/hr Documented by: Sodium Chloride (Normal Saline) 1,000 mls @ 500 mls/hr IV ASDIRECTED ONE Stop: 06/29/21 13:59 Last Admin: 06/29/21 12:15 Dose: 500 mls/hr Documented by: Polyethylene Glycol (Polyethylene Glycol 3350 Powder 238 Gm Bot) 238 gm PO ONETIME ONE Stop: 06/24/21 17:01 Last Admin: 06/24/21 17:38 Dose: 238 gm Documented by: Potassium Chloride (Potassium Chloride 20 Meq Tab.Er) 40 meq PO ONETIME ONE Stop: 06/25/21 06:36 Last Admin: 06/25/21 07:12 Dose: 40 meq Documented by: Potassium Chloride (Potassium Chloride 20 Meq Tab.Er) 40 meq PO ONETIME ONE Stop: 06/26/21 09:01 Last Admin: 06/26/21 09:05 Dose: 40 meq Documented by: Potassium Chloride (Potassium Chloride 20 Meq Tab.Er) 40 meq PO ONETIME ONE Stop: 06/26/21 17:31 Last Admin: 06/26/21 17:28 Dose: 40 meq Documented by: Propofol (Propofol 200 Mg/20 Ml Sdv) Confirm Administered Dose 200 mg .ROUTE .STK-MED ONE Stop: 06/25/21 11:17 - Exam General: Reports: Alert, Oriented, Cooperative, Mild Distress Lungs: Reports: Clear to Auscultation, Normal Respiratory Effort Cardiovascular: Reports: Regular Rate, Irregular Rhythm GI/Abdominal Exam: Soft, Non-Tender, No Organomegaly, No Distention Extremities: Non-Tender, No Pedal Edema *Q Meaningful Use (DIS) - VTE *Q VTE Pharmacological Contraindications *Q: Active Hemorrhage
[2021-06-30] MEDS ORDERED: Clopidogrel 75 MG Tab PO SCH (09:00)
[2021-06-30] MEDS ORDERED: Aspirin 81 MG Tab.Chew PO SCH (09:00)
== END 2021-06-29 20:00 | DRG 375 ==
LOC: JP.ED 11:40 → JP.MS 15:21
PROVIDERS: ADMIT Hospitalist; ATTEND Hospitalist
PROC: 0DBP8ZX Excision of Rectum, Via Natural or Artificial Opening Endoscopic, Diagnostic (ICD-10-PCS; principal; 2021-06-25)
PROC: 30233N1 Transfusion of Nonautologous Red Blood Cells into Peripheral Vein, Percutaneous Approach (ICD-10-PCS; 2021-06-25)
PROC: 30233K1 Transfusion of Nonautologous Frozen Plasma into Peripheral Vein, Percutaneous Approach (ICD-10-PCS; 2021-06-25)
DX: K62.5 Hemorrhage of anus and rectum (principal); C20 Malignant neoplasm of rectum; D62 Acute posthemorrhagic anemia; I48.91 Unspecified atrial fibrillation; I48.20 Chronic atrial fibrillation, unspecified; Z20.822 Contact with and (suspected) exposure to COVID-19; R79.1 Abnormal coagulation profile; I25.10 Atherosclerotic heart disease of native coronary artery without angina pectoris; M19.90 Unspecified osteoarthritis, unspecified site; E66.9 Obesity, unspecified; F17.200 Nicotine dependence, unspecified, uncomplicated; Z79.899 Other long term (current) drug therapy; Z95.2 Presence of prosthetic heart valve; Z79.1 Long term (current) use of non-steroidal anti-inflammatories (NSAID); Z79.01 Long term (current) use of anticoagulants; Z95.5 Presence of coronary angioplasty implant and graft; Z68.32 Body mass index [BMI] 32.0-32.9, adult
CPT/HCPCS: 36415; 80048; 85025; 85610; 86850; 86900; 86901; 86920 ×3; 86922 ×3; 96365; 99285; J3430; 36430; 84132; 85018; 85027; 85730; 88305; A9270-GY; J1644; J2405; J2704; J3010; J3480; J7030; P9016; P9017; U0002

== ENCOUNTER 2022-09-15 13:35 | Emergency (ER) | payer MEDICARE, BC ==
[2022-09-15] MEDS ORDERED: Sodium Chloride 0.9% 10 ML Syringe FLUSH PRN (15:40)
[2022-09-15] MEDS ORDERED: Potassium Chloride 20 MEQ Tab.ER PO ONE (15:41)
[2022-09-15] MEDS ORDERED: Magnesium Sulfate/Water 2 GM in Premix Bag 1 BAG IV ONE (15:41)
[2022-09-15] MEDS ORDERED: Potassium Chloride 10 MEQ in Premix Bag 1 BAG IV SCH (16:00)
[2022-09-15] MEDS ORDERED: Potassium Chloride 10 MEQ in Premix Bag 1 BAG IV ONE (17:30)
== END 2022-09-15 18:28 | disposition home or self-care (01) ==
LOC: JP.ED 13:35
DX: I48.21 Permanent atrial fibrillation (principal); E87.6 Hypokalemia; K92.1 Melena; I25.10 Atherosclerotic heart disease of native coronary artery without angina pectoris; E66.9 Obesity, unspecified; Z79.82 Long term (current) use of aspirin; Z79.01 Long term (current) use of anticoagulants; Z79.899 Other long term (current) drug therapy; Z68.22 Body mass index [BMI] 22.0-22.9, adult
CPT/HCPCS: 93005; 96365; 96367; 96368; 99284; A9270; J3475; J3480

== ENCOUNTER 2022-10-28 17:32 | Inpatient (IN) | payer MEDICARE, BC ==
[2022-10-28] MEDS ORDERED: Acetaminophen 325 MG Tab PO PRN (20:33)
[2022-10-28] MEDS ORDERED: Ondansetron 4 MG Tab.DIS PO PRN (20:33)
[2022-10-28] MEDS ORDERED: oxyCODONE 5 MG Tab PO PRN (20:33)
[2022-10-28] MEDS ORDERED: Morphine 2 MG/ML SYRINGE IVPUSH PRN (20:33)
[2022-10-28] MEDS ORDERED: Potassium Chloride 20 MEQ Tab.ER PO ONE (20:33)
[2022-10-28] MEDS ORDERED: Potassium Chloride Riders 40 MEQ in Premix Bag 1 BAG IV ONE (20:33)
[2022-10-28] MEDS: Sodium Chloride 0.9% 1,000 ML IV SCH (21:00)
[2022-10-28] MEDS ORDERED: Pantoprazole 40 MG Vial IV SCH (21:00)
[2022-10-28] MEDS ORDERED: Ampicillin/Sulbactam Na 1.5 GM in Sodium Chloride 0.9% 50 ML IV ONE (21:00)
[2022-10-28] MEDS ORDERED: Calcium Gluconate 2 GM in Sodium Chloride 0.9% 100 ML IV ONE (21:06)
[2022-10-28] MEDS: Melatonin 3 MG Tab PO SCH (21:31)
[2022-10-28 21:44] LABS: CORONAVIRUS COVID-19 NAA NEGATIVE (NEGATIVE)
[2022-10-28] MEDS: Bumetanide 1 MG Tab PO SCH (22:04)
[2022-10-28] MEDS ORDERED: Phytonadione 10 MG in Sodium Chloride 0.9% 50 ML IV ONE (22:26)
[2022-10-28] MEDS: Potassium Chloride 10 MEQ in Premix Bag 1 BAG IV SCH (23:14)
[2022-10-29] MEDS: Potassium Chloride 10 MEQ in Premix Bag 1 BAG IV SCH ×5 (00:05→09:05)
[2022-10-29] MEDS: Ampicillin/Sulbactam Na 1.5 GM in Sodium Chloride 0.9% 50 ML IV SCH ×4 (02:19→21:14)
[2022-10-29 05:40] LABS: ESTIMATED GFR 51 mL/min (>60)
[2022-10-29] MEDS ORDERED: Calcium Gluconate 2 GM in Sodium Chloride 0.9% 100 ML IV ONE ×3 (05:43→21:44)
[2022-10-29] MEDS ORDERED: Magnesium Sulfate/Water 2 GM in Premix Bag 1 BAG IV ONE (06:45)
[2022-10-29] MEDS ORDERED: Potassium Chloride 10 MEQ in Premix Bag 1 BAG IV SCH (07:00)
[2022-10-29] MEDS ORDERED: Potassium Chloride 20 MEQ Tab.ER PO ONE (09:00)
[2022-10-29] MEDS: Bumetanide 1 MG Tab PO SCH (09:05)
[2022-10-29] MEDS: Magnesium Oxide 400 MG Tab PO SCH (09:06)
[2022-10-29] MEDS: Metoprolol Succinate 25 MG Tab.ER (PTOM) PO SCH (09:06)
[2022-10-29] MEDS: Multivitamins with Iron/Calcium/Folic Acid/Minerals Tab PO SCH (09:06)
[2022-10-29] MEDS: Clopidogrel 75 MG Tab (PTOM) PO SCH (09:07)
[2022-10-29] MEDS: Potassium Chloride 20 MEQ Tab.ER (PTOM) PO SCH (09:11)
[2022-10-29] MEDS: Digoxin 125 MCG Tab PO SCH (12:00)
[2022-10-29] MEDS: Sodium Chloride 0.9% 1,000 ML IV SCH (12:01)
[2022-10-29] MEDS ORDERED: Warfarin 5 MG Tab PO SCH (13:00)
[2022-10-29] MEDS: Magnesium Sulfate/Water 2 GM in Premix Bag 1 BAG IV SCH ×2 (15:32→22:04)
[2022-10-29] MEDS ORDERED: atorvaSTATin 20 MG Tab PO SCH (17:00)
[2022-10-29] MEDS: ATORVASTATIN 40MG TAB (PTOM) PO SCH (17:11)
[2022-10-29] MEDS: Pantoprazole 40 MG Tab.CR PO SCH (21:14)
[2022-10-29] MEDS: Melatonin 3 MG Tab PO SCH (21:14)
[2022-10-30] MEDS: Ampicillin/Sulbactam Na 1.5 GM in Sodium Chloride 0.9% 50 ML IV SCH ×2 (03:18→08:54)
[2022-10-30] MEDS: Bumetanide 1 MG Tab PO SCH (08:28)
[2022-10-30] MEDS: Potassium Chloride 20 MEQ Tab.ER (PTOM) PO SCH (08:30)
[2022-10-30] MEDS: Magnesium Oxide 400 MG Tab PO SCH (08:31)
[2022-10-30] MEDS: Clopidogrel 75 MG Tab (PTOM) PO SCH (08:31)
[2022-10-30] MEDS: Metoprolol Succinate 25 MG Tab.ER (PTOM) PO SCH (08:32)
[2022-10-30] MEDS: Multivitamins with Iron/Calcium/Folic Acid/Minerals Tab PO SCH (08:32)
[2022-10-30] MEDS ORDERED: Calcium Gluconate 2 GM in Sodium Chloride 0.9% 100 ML IV ONE (09:00)
[2022-10-30] MEDS: Digoxin 125 MCG Tab PO SCH (12:49)
[2022-10-30] MEDS ORDERED: Iopamidol 612 MG/ML 100 ML Bottle IV PRN (12:54)
[2022-10-30] MEDS ORDERED: Sodium Chloride 0.9% 50 ML IV ONE (12:54)
[2022-10-30] MEDS ORDERED: Sodium Chloride 0.9% 10 ML Syringe FLUSH PRN (12:54)
[2022-10-30] MEDS: Sodium Chloride 0.9% 1,000 ML IV SCH (15:08)
[2022-10-30] MEDS: ATORVASTATIN 40MG TAB (PTOM) PO SCH (17:04)
[2022-10-30] MEDS: Melatonin 3 MG Tab PO SCH (20:58)
[2022-10-30] MEDS: Pantoprazole 40 MG Tab.CR PO SCH (20:58)
[2022-10-31] MEDS: Sodium Chloride 0.9% 1,000 ML IV SCH (03:01)
[2022-10-31] MEDS ORDERED: Ketamine 500 MG/5 ML MDV IV SCH ×4 (07:45→12:00)
[2022-10-31] MEDS ORDERED: fentaNYL 250 MCG/5 ML SDV ONE (08:24)
[2022-10-31] MEDS ORDERED: Propofol 200 MG/20 ML SDV ONE (08:25)
[2022-10-31] MEDS ORDERED: Rocuronium 50 MG/5 ML Vial ONE (08:25)
[2022-10-31] MEDS ORDERED: Glycopyrrolate 0.2 MG/ML 5 ML MDV ONE (08:25)
[2022-10-31] MEDS ORDERED: Succinylcholine 200 MG/10 ML MDV ONE (08:25)
[2022-10-31] MEDS ORDERED: Dexamethasone 4 MG/ML SDV ONE (08:25)
[2022-10-31] MEDS ORDERED: Neostigmine Methylsulfate 1 MG/ML 5 ML Syringe ONE (08:25)
[2022-10-31] MEDS ORDERED: Ondansetron 4 MG/2 ML SDV ONE (08:25)
[2022-10-31] MEDS: Magnesium Sulfate/Water 2 GM/50 ML BAG IV SCH ×3 (08:38→22:33)
[2022-10-31] MEDS: Metoprolol Succinate 25 MG Tab.ER (PTOM) PO SCH (08:41)
[2022-10-31] MEDS ORDERED: Meropenem 500 MG SDV ONE (09:07)
[2022-10-31] MEDS ORDERED: Ketamine 16 MG in Sodium Chloride 0.9% 19.84 ML IV SCH ×2 (10:00→12:00)
[2022-10-31] MEDS ORDERED: cefOXitin 2 GM in Sodium Chloride 0.9% 50 ML IV ONE ×2 (10:00→12:00)
[2022-10-31] MEDS ORDERED: Atropine 0.1 MG/ML 10 ML Syringe ONE (10:39)
[2022-10-31] MEDS ORDERED: Lidocaine 2% Jelly 10 ML Urojet ONE (10:39)
[2022-10-31 11:25] LABS: ESTIMATED GFR 42 mL/min (>60)
[2022-10-31] MEDS ORDERED: Dextrose 5%-Lactated Ringers 1,000 ML IV SCH (12:15)
[2022-10-31] MEDS ORDERED: Warfarin 5 MG Tab (PTOM) PO SCH (13:00)
[2022-10-31] MEDS: Potassium Chloride 20 MEQ in Premix Bag 1 BAG IV SCH ×3 (13:29→19:35)
[2022-10-31] MEDS: Digoxin 125 MCG Tab PO SCH (15:38)
[2022-10-31] MEDS ORDERED: atorvaSTATin 20 MG Tab PO SCH (17:00)
[2022-11-01] MEDS: Magnesium Sulfate/Water 2 GM/50 ML BAG IV SCH ×4 (02:12→19:35)
[2022-11-01] MEDS ORDERED: Lidocaine 1% with EPINEPHrine 1:100,000 50 ML MDV ONE (06:52)
[2022-11-01] MEDS ORDERED: Meropenem 500 MG SDV ONE (06:52)
[2022-11-01] MEDS ORDERED: Bupivacaine 0.5% 50 ML MDV ONE (06:52)
[2022-11-01] MEDS: Metoprolol Succinate 25 MG Tab.ER PO SCH (06:55)
[2022-11-01] MEDS ORDERED: fentaNYL 250 MCG/5 ML SDV ONE (08:10)
[2022-11-01] MEDS ORDERED: Rocuronium 50 MG/5 ML Vial ONE (08:11)
[2022-11-01] MEDS ORDERED: Propofol 200 MG/20 ML SDV ONE (08:11)
[2022-11-01] MEDS ORDERED: Neostigmine Methylsulfate 1 MG/ML 5 ML Syringe ONE (08:11)
[2022-11-01] MEDS ORDERED: Succinylcholine 200 MG/10 ML MDV ONE (08:11)
[2022-11-01] MEDS ORDERED: Glycopyrrolate 0.2 MG/ML 5 ML MDV ONE (08:11)
[2022-11-01] MEDS ORDERED: Dexamethasone 4 MG/ML SDV ONE (08:11)
[2022-11-01] MEDS ORDERED: Ondansetron 4 MG/2 ML SDV ONE (08:11)
[2022-11-01] MEDS ORDERED: Ketamine 500 MG/5 ML MDV IV SCH (08:30)
[2022-11-01] MEDS ORDERED: cefOXitin 2 GM in Sodium Chloride 0.9% 50 ML IV ONE (08:30)
[2022-11-01] MEDS ORDERED: Ketamine 16 MG in Sodium Chloride 0.9% 19.84 ML IV SCH (08:30)
[2022-11-01] MEDS ORDERED: ePHEDrine 50 MG/ML SDV ONE (09:27)
[2022-11-01] MEDS ORDERED: Lactated Ringers 1,000 ML ONE (09:36)
[2022-11-01] MEDS ORDERED: Linezolid 600 MG/300 ML Premix Bag IRR ONE (10:31)
[2022-11-01] MEDS ORDERED: Warfarin 5 MG Tab (PTOM) PO SCH (13:00)
[2022-11-01] MEDS ORDERED: Naloxone 0.4 MG/ML SDV IV PRN (14:00)
[2022-11-01] MEDS ORDERED: HYDROmorphone/Normal Saline 6 MG/30 ML PCA Vial IV PRN (14:00)
[2022-11-01] MEDS ORDERED: Acetaminophen 500 MG Tab PO PRN (15:00)
[2022-11-01] MEDS ORDERED: Labetalol 20 MG/4 ML Syringe IVPUSH PRN (15:00)
[2022-11-01] MEDS ORDERED: Ondansetron 4 MG/2 ML SDV IVPUSH PRN (15:00)
[2022-11-01] MEDS ORDERED: hydrOXYzine HCl 50 MG/ML SDV IM PRN (15:00)
[2022-11-01] MEDS ORDERED: Metoclopramide 10 MG/2 ML SDV IVPUSH PRN (15:00)
[2022-11-01] MEDS ORDERED: diphenhydrAMINE 50 MG/ML SDV IVPUSH PRN (15:00)
[2022-11-01] MEDS: Dextrose 5%-Lactated Ringers 1,000 ML IV SCH (15:04)
[2022-11-01] MEDS: Digoxin 125 MCG Tab PO SCH (15:19)
[2022-11-01] MEDS ORDERED: MVI, Adult with Vitamin K 10 ML, Thiamine 200 MG, Zinc/Copper/Manganese/Selenium 1 ML i... IV SCH ×4 (16:00)
[2022-11-01] MEDS: Pantoprazole 40 MG Vial IVPUSH SCH (16:35)
[2022-11-01] MEDS: Azithromycin 125 MG in Sodium Chloride 0.9% 100 ML IV SCH (16:35)
[2022-11-01] MEDS: Acetaminophen 500 MG Tab PO SCH (16:37)
[2022-11-01] MEDS: cefOXitin 2 GM in Sodium Chloride 0.9% 50 ML IV SCH ×2 (16:47→22:28)
[2022-11-02] MEDS: Magnesium Sulfate/Water 2 GM/50 ML BAG IV SCH ×4 (01:03→19:52)
[2022-11-02] MEDS: Dextrose 5%-Lactated Ringers 1,000 ML IV SCH (01:09)
[2022-11-02] MEDS: Acetaminophen 500 MG Tab PO SCH ×3 (01:09→16:07)
[2022-11-02] MEDS: cefOXitin 2 GM in Sodium Chloride 0.9% 50 ML IV SCH ×4 (03:29→22:54)
[2022-11-02] MEDS: Azithromycin 125 MG in Sodium Chloride 0.9% 100 ML IV SCH ×2 (04:49→16:06)
[2022-11-02 05:16] LABS: ESTIMATED GFR 42 mL/min (>60)
[2022-11-02] MEDS: Cyclobenzaprine 10 MG Tab PO PRN (07:09)
[2022-11-02] MEDS: Celecoxib 200 MG Cap PO SCH ×2 (09:25→21:43)
[2022-11-02] MEDS: SCOPOLAMINE PATCH CHECK TOP SCH (09:26)
[2022-11-02] MEDS: Metoprolol Succinate 25 MG Tab.ER PO SCH (09:26)
[2022-11-02] MEDS: Digoxin 125 MCG Tab PO SCH (13:23)
[2022-11-02] MEDS: Pantoprazole 40 MG Vial IVPUSH SCH (15:01)
[2022-11-02] MEDS ORDERED: MVI, Adult with Vitamin K 10 ML, Thiamine 200 MG, Zinc/Copper/Manganese/Selenium 1 ML i... IV SCH ×4 (16:00)
[2022-11-02] MEDS ORDERED: Dextrose 5%-Lactated Ringers 1,000 ML IV SCH (16:00)
[2022-11-02] MEDS: Lactated Ringers 500 ML IV SCH ×3 (16:05→21:04)
[2022-11-02] MEDS ORDERED: Lactated Ringers 500 ML IV SCH ×3 (19:00→20:30)
[2022-11-02] MEDS ORDERED: Sodium Chloride 0.9% 1,000 ML IV SCH (22:00)
[2022-11-03] MEDS ORDERED: Sodium Chloride 0.9% 1,000 ML IV SCH
[2022-11-03] MEDS: Acetaminophen 500 MG Tab PO SCH ×3 (01:24→16:42)
[2022-11-03] MEDS: Magnesium Sulfate/Water 2 GM/50 ML BAG IV SCH ×2 (01:24→07:43)
[2022-11-03] MEDS: cefOXitin 2 GM in Sodium Chloride 0.9% 50 ML IV SCH ×2 (03:27→09:56)
[2022-11-03] MEDS: Azithromycin 125 MG in Sodium Chloride 0.9% 100 ML IV SCH ×2 (03:44→15:56)
[2022-11-03] MEDS: Norepinephrine Bit/D5W Premix 4 MG in Premix Bag 1 BAG IV SCH ×2 (03:48→17:14)
[2022-11-03 05:06] LABS: ESTIMATED GFR 35 mL/min (>60)
[2022-11-03] MEDS ORDERED: Lidocaine 1% with EPINEPHrine 1:100,000 50 ML MDV ONE (06:37)
[2022-11-03] MEDS ORDERED: Meropenem 500 MG SDV ONE (06:37)
[2022-11-03] MEDS ORDERED: Bupivacaine 0.5% 50 ML MDV ONE (06:37)
[2022-11-03] MEDS: SCOPOLAMINE PATCH CHECK TOP SCH (08:35)
[2022-11-03] MEDS ORDERED: Cyanocobalamin (Vitamin B12) 1,000 MCG/ML SDV IM ONE (09:00)
[2022-11-03] MEDS: Celecoxib 200 MG Cap PO SCH (09:44)
[2022-11-03] MEDS: Metoprolol Succinate 25 MG Tab.ER PO SCH (09:46)
[2022-11-03] MEDS: Pantoprazole 40 MG Vial IVPUSH SCH (15:07)
[2022-11-03] MEDS: Dextrose 5%-Lactated Ringers 1,000 ML IV SCH (16:11)
[2022-11-03] MEDS ORDERED: Lactated Ringers 500 ML IV ONE (20:30)
[2022-11-03] MEDS ORDERED: Furosemide 20 MG/2 ML VIAL IVPUSH ONE (23:18)
[2022-11-04] MEDS: Acetaminophen 500 MG Tab PO SCH ×2 (00:14→09:55)
[2022-11-04] MEDS: Dextrose 5%-Lactated Ringers 1,000 ML IV SCH ×3 (03:39→23:06)
[2022-11-04] MEDS: Azithromycin 125 MG in Sodium Chloride 0.9% 100 ML IV SCH ×2 (03:40→15:02)
[2022-11-04] MEDS ORDERED: Lactated Ringers 500 ML IV ONE (04:00)
[2022-11-04] MEDS: Norepinephrine Bit/D5W Premix 4 MG in Premix Bag 1 BAG IV SCH ×2 (05:35→20:15)
[2022-11-04 05:38] LABS: ESTIMATED GFR 38 mL/min (>60)
[2022-11-04] MEDS ORDERED: Meropenem 500 MG SDV ONE (06:40)
[2022-11-04] MEDS ORDERED: Lidocaine 1% with EPINEPHrine 1:100,000 50 ML MDV ONE (06:40)
[2022-11-04] MEDS ORDERED: Bupivacaine 0.5% 50 ML MDV ONE (06:40)
[2022-11-04] MEDS ORDERED: Lactated Ringers 500 ML IV SCH (06:45)
[2022-11-04] MEDS ORDERED: Propofol 200 MG/20 ML SDV ONE (07:04)
[2022-11-04] MEDS ORDERED: Furosemide 20 MG/2 ML VIAL IVPUSH ONE ×2 (08:00→12:00)
[2022-11-04] MEDS ORDERED: Metoclopramide 10 MG/2 ML SDV IVPUSH PRN (09:18)
[2022-11-04] MEDS ORDERED: Dextrose 5%-Lactated Ringers 1,000 ML IV SCH (10:00)
[2022-11-04] MEDS: Metoprolol Succinate 25 MG Tab.ER PO SCH (12:00)
[2022-11-04] MEDS: Pantoprazole 40 MG Vial IVPUSH SCH (14:47)
[2022-11-05] MEDS: Azithromycin 125 MG in Sodium Chloride 0.9% 100 ML IV SCH ×2 (04:22→17:30)
[2022-11-05 05:27] LABS: ESTIMATED GFR 35 mL/min (>60)
[2022-11-05] MEDS ORDERED: Bumetanide 1 MG/4 ML MDV IVPUSH ONE ×2 (06:39→13:00)
[2022-11-05] MEDS: Dextrose 5%-Lactated Ringers 1,000 ML IV SCH (08:25)
[2022-11-05] MEDS: Docusate Sodium 100 MG Cap PO SCH ×2 (08:31→20:38)
[2022-11-05] MEDS: Bisacodyl 5 MG Tab PO SCH ×2 (08:31→20:38)
[2022-11-05] MEDS: traMADol 50 MG Tab PO PRN ×3 (08:48→20:38)
[2022-11-05] MEDS: Metoprolol Succinate 25 MG Tab.ER PO SCH (13:40)
[2022-11-05] MEDS: Digoxin 125 MCG Tab PO SCH (14:05)
[2022-11-05] MEDS: Pantoprazole 40 MG Vial IVPUSH SCH (17:05)
[2022-11-06] MEDS: Azithromycin 125 MG in Sodium Chloride 0.9% 100 ML IV SCH ×2 (04:19→17:42)
[2022-11-06 04:56] LABS: ESTIMATED GFR 35 mL/min (>60)
[2022-11-06] MEDS: Bumetanide 1 MG/4 ML MDV IVPUSH SCH ×3 (08:35→20:17)
[2022-11-06] MEDS: Metoprolol Succinate 25 MG Tab.ER PO SCH (09:32)
[2022-11-06] MEDS: Docusate Sodium 100 MG Cap PO SCH ×2 (09:32→21:44)
[2022-11-06] MEDS: Bisacodyl 5 MG Tab PO SCH ×2 (09:32→21:44)
[2022-11-06] MEDS: Dextrose 5%-Lactated Ringers 1,000 ML IV SCH (10:03)
[2022-11-06] MEDS: Digoxin 125 MCG Tab PO SCH (13:19)
[2022-11-06] MEDS: Pantoprazole 40 MG Delayed-Release Granules 1 Packet PO SCH (17:44)
[2022-11-07] MEDS ORDERED: Azithromycin 500 MG Vial ONE (04:07)
[2022-11-07] MEDS: Azithromycin 125 MG in Sodium Chloride 0.9% 100 ML IV SCH (04:16)
[2022-11-07 05:04] LABS: ESTIMATED GFR 42 mL/min (>60)
[2022-11-07] MEDS: Bumetanide 1 MG/4 ML MDV IVPUSH SCH ×2 (08:12→20:26)
[2022-11-07] MEDS: Docusate Sodium 100 MG Cap PO SCH ×2 (09:03→20:32)
[2022-11-07] MEDS: Metoprolol Succinate 25 MG Tab.ER PO SCH (09:03)
[2022-11-07] MEDS ORDERED: Potassium Chloride 20 MEQ Tab.ER PO ONE (10:00)
[2022-11-07] MEDS ORDERED: Potassium Chloride 20 MEQ Tab.ER ONE ×2 (12:15→12:20)
[2022-11-07] MEDS: Digoxin 125 MCG Tab PO SCH (12:55)
[2022-11-07] MEDS: Dextrose 5%-Lactated Ringers 1,000 ML IV SCH (13:03)
[2022-11-07] MEDS: Pantoprazole 40 MG Delayed-Release Granules 1 Packet PO SCH (16:42)
[2022-11-08 05:30] LABS: ESTIMATED GFR 51 mL/min (>60)
[2022-11-08] MEDS ORDERED: Bumetanide 2.5 MG/10 ML MDV IVPUSH SCH (09:00)
[2022-11-08] MEDS: Potassium Chloride 20 MEQ Tab.ER PO SCH ×2 (09:03→21:10)
[2022-11-08] MEDS: Metoprolol Succinate 25 MG Tab.ER PO SCH (09:03)
[2022-11-08] MEDS: Bumetanide 1 MG/4 ML MDV IVPUSH SCH ×2 (09:03→21:11)
[2022-11-08] MEDS: Docusate Sodium 100 MG Cap PO SCH ×2 (09:11→21:10)
[2022-11-08] MEDS: Heparin Sodium 5,000 Units/ML Vial SUBCUT SCH ×2 (10:14→21:10)
[2022-11-08] MEDS: Digoxin 125 MCG Tab PO SCH (12:48)
[2022-11-08] MEDS: Dextrose 5%-Lactated Ringers 1,000 ML IV SCH (13:49)
[2022-11-08] MEDS: Pantoprazole 40 MG Delayed-Release Granules 1 Packet PO SCH (16:33)
[2022-11-09 05:19] LABS: ESTIMATED GFR 65 mL/min (>60)
[2022-11-09] MEDS: Bumetanide 1 MG/4 ML MDV IVPUSH SCH (09:35)
[2022-11-09] MEDS: Docusate Sodium 100 MG Cap PO SCH ×2 (09:35→20:16)
[2022-11-09] MEDS: Potassium Chloride 20 MEQ Tab.ER PO SCH ×2 (09:35→20:15)
[2022-11-09] MEDS: Magnesium Sulfate/Water 2 GM in Premix Bag 1 BAG IV SCH ×3 (09:36→20:15)
[2022-11-09] MEDS: Metoprolol Succinate 25 MG Tab.ER PO SCH (09:36)
[2022-11-09] MEDS: Heparin Sodium 5,000 Units/ML Vial SUBCUT SCH ×2 (09:37→21:50)
[2022-11-09] MEDS: Potassium Phos in 0.9 % NaCl 15 MMOL in Premix Bag 1 BAG IV SCH ×6 (11:28→18:26)
[2022-11-09] MEDS: Digoxin 125 MCG Tab PO SCH (13:23)
[2022-11-09] MEDS: Acetaminophen 500 MG Tab PO PRN (13:56)
[2022-11-09] MEDS: 1: AA 5%/Calcium/D15W/Lytes 1,000 ML with MVI, Adult with Vitamin K 10 ML, Zinc/Copper/M IV SCH ×3 (14:24)
[2022-11-09] MEDS ORDERED: Albumin Human 25 GM in Premix Bag 1 BAG IV ONE (14:30)
[2022-11-09] MEDS: Dextrose 5%-Lactated Ringers 1,000 ML IV SCH (14:54)
[2022-11-09] MEDS ORDERED: Tamsulosin 0.4 MG Cap.ER PO ONE (15:20)
[2022-11-09] MEDS: traMADol 50 MG Tab PO PRN ×2 (15:58→20:30)
[2022-11-09] MEDS ORDERED: Bumetanide 1 MG/4 ML MDV IVPUSH ONE (16:00)
[2022-11-09] MEDS: Pantoprazole 40 MG Delayed-Release Granules 1 Packet PO SCH (16:00)
[2022-11-09] MEDS: Tamsulosin 0.4 MG Cap.ER PO SCH (20:19)
[2022-11-10] MEDS: 1: AA 5%/Calcium/D15W/Lytes 1,000 ML with MVI, Adult with Vitamin K 10 ML, Zinc/Copper/M IV SCH ×6 (02:35→16:09)
[2022-11-10] MEDS: Magnesium Sulfate/Water 2 GM in Premix Bag 1 BAG IV SCH ×4 (02:52→20:16)
[2022-11-10 05:35] LABS: ESTIMATED GFR 65 mL/min (>60)
[2022-11-10] MEDS: Dextrose 5%-Lactated Ringers 1,000 ML IV SCH (06:15)
[2022-11-10] MEDS: traMADol 50 MG Tab PO PRN ×4 (06:16→20:45)
[2022-11-10] MEDS: Bumetanide 1 MG/4 ML MDV IVPUSH SCH ×2 (08:07→15:55)
[2022-11-10] MEDS: Docusate Sodium 100 MG Cap PO SCH ×2 (08:08→20:19)
[2022-11-10] MEDS: Metoprolol Succinate 25 MG Tab.ER PO SCH (08:08)
[2022-11-10] MEDS: Heparin Sodium 5,000 Units/ML Vial SUBCUT SCH ×2 (11:09→22:11)
[2022-11-10] MEDS: Digoxin 125 MCG Tab PO SCH (12:22)
[2022-11-10] MEDS: Pantoprazole 40 MG Delayed-Release Granules 1 Packet PO SCH (15:55)
[2022-11-10] MEDS: Tamsulosin 0.4 MG Cap.ER PO SCH (20:18)
[2022-11-11] MEDS: Magnesium Sulfate/Water 2 GM in Premix Bag 1 BAG IV SCH ×4 (02:29→21:03)
[2022-11-11] MEDS: traMADol 50 MG Tab PO PRN ×3 (05:44→17:39)
[2022-11-11 05:49] LABS: ESTIMATED GFR 57 mL/min (>60)
[2022-11-11] MEDS: Docusate Sodium 100 MG Cap PO SCH ×2 (08:32→21:03)
[2022-11-11] MEDS: Metoprolol Succinate 25 MG Tab.ER PO SCH (08:34)
[2022-11-11] MEDS: 1: AA 5%/Calcium/D15W/Lytes 1,000 ML with MVI, Adult with Vitamin K 10 ML, Zinc/Copper/M IV SCH ×3 (09:17)
[2022-11-11] MEDS: Bumetanide 1 MG/4 ML MDV IV SCH (10:21)
[2022-11-11] MEDS: Heparin Sodium 5,000 Units/ML Vial SUBCUT SCH ×2 (10:21→21:03)
[2022-11-11] MEDS: Digoxin 125 MCG Tab PO SCH (13:15)
[2022-11-11] MEDS: Acetaminophen 500 MG Tab PO PRN (15:37)
[2022-11-11] MEDS: Pantoprazole 40 MG Delayed-Release Granules 1 Packet PO SCH (15:39)
[2022-11-11] MEDS: Cyclobenzaprine 10 MG Tab PO PRN (16:56)
[2022-11-11] MEDS: Tamsulosin 0.4 MG Cap.ER PO SCH (21:03)
[2022-11-12] MEDS: 1: AA 5%/Calcium/D15W/Lytes 1,000 ML with MVI, Adult with Vitamin K 10 ML, Zinc/Copper/M IV SCH ×6 (02:10→13:43)
[2022-11-12] MEDS: Magnesium Sulfate/Water 2 GM in Premix Bag 1 BAG IV SCH (03:45)
[2022-11-12 06:08] LABS: ESTIMATED GFR 65 mL/min (>60)
[2022-11-12] MEDS: Metoprolol Succinate 25 MG Tab.ER PO SCH (08:25)
[2022-11-12] MEDS: Docusate Sodium 100 MG Cap PO SCH ×2 (08:26→21:30)
[2022-11-12] MEDS: Bumetanide 1 MG/4 ML MDV IV SCH (08:30)
[2022-11-12] MEDS: traMADol 50 MG Tab PO PRN ×2 (08:48→21:30)
[2022-11-12] MEDS: Heparin Sodium 5,000 Units/ML Vial SUBCUT SCH ×2 (10:08→21:30)
[2022-11-12] MEDS ORDERED: Bumetanide 1 MG/4 ML MDV IV ONE (12:00)
[2022-11-12] MEDS: Digoxin 125 MCG Tab PO SCH (12:59)
[2022-11-12] MEDS: Pantoprazole 40 MG Delayed-Release Granules 1 Packet PO SCH (17:00)
[2022-11-12] MEDS ORDERED: diphenhydrAMINE 25 MG Cap PO PRN (21:08)
[2022-11-12] MEDS: Tamsulosin 0.4 MG Cap.ER PO SCH (21:30)
[2022-11-12] MEDS: Dextrose 5%-Lactated Ringers 1,000 ML IV SCH (22:53)
[2022-11-13 05:12] LABS: ESTIMATED GFR 65 mL/min (>60)
[2022-11-13] MEDS: Docusate Sodium 100 MG Cap PO SCH ×2 (08:16→22:07)
[2022-11-13] MEDS: Metoprolol Succinate 25 MG Tab.ER PO SCH (08:16)
[2022-11-13] MEDS ORDERED: Potassium Chloride 20 MEQ Tab.ER PO ONE (09:00)
[2022-11-13] MEDS: Heparin Sodium 5,000 Units/ML Vial SUBCUT SCH ×2 (10:08→22:05)
[2022-11-13] MEDS: traMADol 50 MG Tab PO PRN ×2 (11:15→16:32)
[2022-11-13] MEDS ORDERED: Bumetanide 1 MG/4 ML MDV IVPUSH ONE (12:00)
[2022-11-13] MEDS: Digoxin 125 MCG Tab PO SCH (12:55)
[2022-11-13] MEDS: 1: AA 5%/Calcium/D15W/Lytes 1,000 ML with MVI, Adult with Vitamin K 10 ML, Zinc/Copper/M IV SCH ×3 (14:20)
[2022-11-13] MEDS: Pantoprazole 40 MG Delayed-Release Granules 1 Packet PO SCH (16:32)
[2022-11-13] MEDS: Acetaminophen 500 MG Tab PO PRN (17:48)
[2022-11-13] MEDS: Tamsulosin 0.4 MG Cap.ER PO SCH (22:05)
[2022-11-14 05:16] LABS: ESTIMATED GFR 75 mL/min (>60)
[2022-11-14] MEDS: Metoprolol Succinate 25 MG Tab.ER PO SCH (08:01)
[2022-11-14] MEDS: Docusate Sodium 100 MG Cap PO SCH ×2 (08:01→21:28)
[2022-11-14] MEDS: Heparin Sodium 5,000 Units/ML Vial SUBCUT SCH ×2 (09:11→21:30)
[2022-11-14] MEDS: Potassium Chloride 20 MEQ Tab.ER PO SCH ×3 (09:12→17:11)
[2022-11-14] MEDS: traMADol 50 MG Tab PO PRN ×3 (09:58→20:05)
[2022-11-14] MEDS: Magnesium Sulfate/Water 2 GM in Premix Bag 1 BAG IV SCH ×3 (09:59→21:51)
[2022-11-14] MEDS: Digoxin 125 MCG Tab PO SCH (12:26)
[2022-11-14] MEDS: 1: AA 5%/Calcium/D15W/Lytes 1,000 ML with MVI, Adult with Vitamin K 10 ML, Zinc/Copper/M IV SCH ×3 (15:37)
[2022-11-14] MEDS: Pantoprazole 40 MG Delayed-Release Granules 1 Packet PO SCH (15:43)
[2022-11-14] MEDS: Tamsulosin 0.4 MG Cap.ER PO SCH (21:29)
[2022-11-14] MEDS: Dextrose 5%-Lactated Ringers 1,000 ML IV SCH (22:43)
[2022-11-15] MEDS: Magnesium Sulfate/Water 2 GM in Premix Bag 1 BAG IV SCH ×4 (04:44→21:03)
[2022-11-15] MEDS: traMADol 50 MG Tab PO PRN (08:00)
[2022-11-15] MEDS: Metoprolol Succinate 25 MG Tab.ER PO SCH (08:01)
[2022-11-15] MEDS: Docusate Sodium 100 MG Cap PO SCH ×2 (08:01→21:02)
[2022-11-15] MEDS: Heparin Sodium 5,000 Units/ML Vial SUBCUT SCH ×2 (09:10→21:03)
[2022-11-15] MEDS: Clopidogrel 75 MG Tab PO SCH (11:20)
[2022-11-15] MEDS: Tamsulosin 0.4 MG Cap.ER PO SCH ×2 (11:21→21:03)
[2022-11-15] MEDS: Bumetanide 1 MG Tab PO SCH (11:21)
[2022-11-15] MEDS ORDERED: Warfarin 5 MG Tab PO ONE (12:00)
[2022-11-15] MEDS: Digoxin 125 MCG Tab PO SCH (13:19)
[2022-11-15] MEDS: Pantoprazole 40 MG Delayed-Release Granules 1 Packet PO SCH (16:01)
[2022-11-15] MEDS: 1: AA 5%/Calcium/D15W/Lytes 1,000 ML with MVI, Adult with Vitamin K 10 ML, Zinc/Copper/M IV SCH ×3 (16:44)
[2022-11-15] MEDS: Terazosin 1 MG Cap PO SCH (21:05)
[2022-11-16] MEDS: Magnesium Sulfate/Water 2 GM in Premix Bag 1 BAG IV SCH (03:34)
[2022-11-16 05:21] LABS: ESTIMATED GFR 88 mL/min (>60)
[2022-11-16] MEDS: Docusate Sodium 100 MG Cap PO SCH ×2 (08:15→20:25)
[2022-11-16] MEDS: Metoprolol Succinate 25 MG Tab.ER PO SCH (08:15)
[2022-11-16] MEDS: Clopidogrel 75 MG Tab PO SCH (08:15)
[2022-11-16] MEDS: Bumetanide 1 MG Tab PO SCH (08:15)
[2022-11-16] MEDS: Tamsulosin 0.4 MG Cap.ER PO SCH ×2 (08:15→20:26)
[2022-11-16] MEDS ORDERED: Potassium Chloride Riders 40 MEQ in Premix Bag 1 BAG IV ONE (09:30)
[2022-11-16] MEDS: Heparin Sodium 5,000 Units/ML Vial SUBCUT SCH ×2 (09:33→21:28)
[2022-11-16] MEDS: Potassium Chloride 20 MEQ Tab.ER PO SCH ×3 (09:33→16:07)
[2022-11-16] MEDS: Dextrose 5%-Lactated Ringers 1,000 ML IV SCH (09:47)
[2022-11-16] MEDS ORDERED: Warfarin 5 MG Tab PO ONE (12:00)
[2022-11-16] MEDS: Digoxin 125 MCG Tab PO SCH (12:37)
[2022-11-16] MEDS: Pantoprazole 40 MG Delayed-Release Granules 1 Packet PO SCH (16:07)
[2022-11-16] MEDS: traMADol 50 MG Tab PO PRN ×2 (16:18→20:17)
[2022-11-16] MEDS ORDERED: 1: AA 5%/Calcium/D15W/Lytes 1,000 ML with MVI, Adult with Vitamin K 10 ML, Zinc/Copper/M IV SCH ×3 (16:30)
[2022-11-16] MEDS: Terazosin 1 MG Cap PO SCH (20:27)
[2022-11-17] MEDS ORDERED: Central Total Parenteral Nutrition Bag SCH (07:30)
[2022-11-17] MEDS: Docusate Sodium 100 MG Cap PO SCH ×2 (09:03→21:03)
[2022-11-17] MEDS: Bumetanide 1 MG Tab PO SCH (09:03)
[2022-11-17] MEDS: Metoprolol Succinate 25 MG Tab.ER PO SCH (09:03)
[2022-11-17] MEDS: Tamsulosin 0.4 MG Cap.ER PO SCH ×2 (09:03→21:03)
[2022-11-17] MEDS: Clopidogrel 75 MG Tab PO SCH (09:03)
[2022-11-17] MEDS: Heparin Sodium 5,000 Units/ML Vial SUBCUT SCH ×2 (09:04→21:03)
[2022-11-17] MEDS: Digoxin 125 MCG Tab PO SCH (12:53)
[2022-11-17] MEDS ORDERED: Warfarin 5 MG Tab PO ONE (13:00)
[2022-11-17] MEDS ORDERED: Bumetanide 1 MG/4 ML MDV IVPUSH ONE (14:00)
[2022-11-17] MEDS ORDERED: 1: AA 5%/Calcium/D15W/Lytes 1,000 ML with MVI, Adult with Vitamin K 10 ML, Zinc/Copper/M IV SCH ×3 (14:00)
[2022-11-17] MEDS: traMADol 50 MG Tab PO PRN (14:55)
[2022-11-17] MEDS: Pantoprazole 40 MG Delayed-Release Granules 1 Packet PO SCH (17:01)
[2022-11-17] MEDS: Terazosin 1 MG Cap PO SCH (21:02)
[2022-11-18] MEDS ORDERED: EPINEPHrine 1:10,000 1 MG/10 ML Syringe IV ONE ×4 (02:32→02:40)
== END 2022-11-18 02:43 | disposition expired | DRG 329 ==
LOC: JP.MS 17:32 → OBSVTOIN 10-29 09:20 → JP.ICU 10-31 11:00 → JP.MS 11-03 12:47 → JP.ICU 11-03 12:57
PROVIDERS: ADMIT Hospitalist; ATTEND Surgery
PROC: 0DBL0ZZ Excision of Transverse Colon, Open Approach (ICD-10-PCS; principal; 2022-11-01)
PROC: 0DBU0ZZ Excision of Omentum, Open Approach (ICD-10-PCS; 2022-11-01)
PROC: 0DQ80ZZ Repair Small Intestine, Open Approach (ICD-10-PCS; 2022-11-01)
PROC: 0WQF0ZZ Repair Abdominal Wall, Open Approach (ICD-10-PCS; 2022-11-01)
PROC: 0D1B0Z4 Bypass Ileum to Cutaneous, Open Approach (ICD-10-PCS; 2022-11-01)
PROC: 3E0M05Z Introduction of Adhesion Barrier into Peritoneal Cavity, Open Approach (ICD-10-PCS; 2022-11-01)
PROC: 0WQFXZZ Repair Abdominal Wall, External Approach (ICD-10-PCS; 2022-11-04)
PROC: 3E0336Z Introduction of Nutritional Substance into Peripheral Vein, Percutaneous Approach (ICD-10-PCS; 2022-11-09)
PROC: 30233N1 Transfusion of Nonautologous Red Blood Cells into Peripheral Vein, Percutaneous Approach (ICD-10-PCS; 2022-11-12)
PROC: 3E033XZ Introduction of Vasopressor into Peripheral Vein, Percutaneous Approach (ICD-10-PCS; 2022-11-12)
PROC: 5A12012 Performance of Cardiac Output, Single, Manual (ICD-10-PCS; 2022-11-17)
DX: K56.51 Intestinal adhesions [bands], with partial obstruction (principal); I26.99 Other pulmonary embolism without acute cor pulmonale; D62 Acute posthemorrhagic anemia; N17.9 Acute kidney failure, unspecified; I48.20 Chronic atrial fibrillation, unspecified; K43.3 Parastomal hernia with obstruction, without gangrene; K65.4 Sclerosing mesenteritis; K52.9 Noninfective gastroenteritis and colitis, unspecified; E87.6 Hypokalemia; E83.51 Hypocalcemia; E83.42 Hypomagnesemia; I95.9 Hypotension, unspecified; R55 Syncope and collapse; R00.1 Bradycardia, unspecified; M19.90 Unspecified osteoarthritis, unspecified site; E66.9 Obesity, unspecified; E87.70 Fluid overload, unspecified; I50.9 Heart failure, unspecified; Z20.822 Contact with and (suspected) exposure to COVID-19; E86.0 Dehydration; R53.81 Other malaise; I35.0 Nonrheumatic aortic (valve) stenosis; I25.10 Atherosclerotic heart disease of native coronary artery without angina pectoris; Z68.26 Body mass index [BMI] 26.0-26.9, adult; Z95.5 Presence of coronary angioplasty implant and graft; Z98.42 Cataract extraction status, left eye; Z98.41 Cataract extraction status, right eye; Z93.3 Colostomy status; Z79.899 Other long term (current) drug therapy; Z79.1 Long term (current) use of non-steroidal anti-inflammatories (NSAID); Z79.01 Long term (current) use of anticoagulants; Z87.81 Personal history of (healed) traumatic fracture; Z98.890 Other specified postprocedural states; Z90.710 Acquired absence of both cervix and uterus; Z85.048 Personal history of other malignant neoplasm of rectum, rectosigmoid junction, and anus; Z95.2 Presence of prosthetic heart valve; Z87.19 Personal history of other diseases of the digestive system; Y84.2 Radiological procedure and radiotherapy as the cause of abnormal reaction of the patient, or of later complication, without mention of misadventure at the time of the procedure; Y73.8 Miscellaneous gastroenterology and urology devices associated with adverse incidents, not elsewhere classified; Y92.89 Other specified places as the place of occurrence of the external cause; S31.109A Unspecified open wound of abdominal wall, unspecified quadrant without penetration into peritoneal cavity, initial encounter; X58.XXXA Exposure to other specified factors, initial encounter; Y92.239 Unspecified place in hospital as the place of occurrence of the external cause
CPT/HCPCS: 0241U; 36415; 36430; 36569; 51701; 51702; 51798; 71045; 71045-26; 74019; 74019-26; 74021; 74021-26; 74177; 74177-26; 80048; 80053; 80162; 81001; 82330; 82378; 83735; 83880; 84100; 84484; 85018; 85025; 85027; 85610; 86301; 86850; 86900; 86901; 86920; 86922; 88302; 88305; 88341; 88342; 93005; 93010; 93971-26; 93971-LT; 94762; 96365; 96366; 96367; 96368; 96375; 96376; 97110-GP; 97162-GP; 97165-GO; 97530-GP; 99223; 99233; 99238; A9270-GY; C1751; C9113; G0378; G0379; J0131; J0171; J0295; J0330; J0456; J0461; J0610; J0694; J1100; J1170; J1644; J1940; J2020; J2185; J2270; J2405; J2704; J2710; J2795; J3010; J3411; J3420; J3430; J3475; J3480; J3490; J7030; J7120; J7121; P9016; P9047; Q0162; Q9967